=== PATIENT | male | born 1970 | race Caucasian/White ===

== ENCOUNTER → 2017-06-09 | Outpatient (CLI) | payer OTHER ==
--- NOTE | 2017-06-11 15:41 | PE ---
Nuclear medicine PET/CT HISTORY: Lung mass Patient received 13.8 mCi F-18 FDG intravenously in delayed scanning was performed from the skull bas e to the mid thighs. Localization and attenuation correction CT scan was performed. Correlation to chest x-ray 06/04/2017 Neck and chest: There is a soft tissue mass in the left upper lobe with some central lucency, spiculated margins like ly extending to the pleural surface and measuring approximately 16 mm. There is associated hypermetab olic uptake present, SUV 2.7. No pleural effusion. Emphysematous changes are present within the lungs . No endobronchial lesion or pericardial effusion. No mediastinal, axillary, or hilar adenopathy. Abdomen pelvis: There is no evident adrenal mass. Cystic focus is associated with the right kidney. N o retroperitoneal adenopathy or liver mass. No ascites. There is some hypermetabolic uptake noted wit hin the stomach which is indeterminate, SUV 3.9. Osseous structures within normal limits. IMPRESSION: Left upper lobe mass as described with associated hypermetabolic uptake. Indeterminate ga stric uptake, consider endoscopy.
== END | disposition home or self-care (01) ==
LOC: RADPETMAIN 08:10
PROVIDERS: ATTEND Internal Medicine
DX: R91.1 Solitary pulmonary nodule (principal)
CPT/HCPCS: 78815; A9552

== ENCOUNTER 2017-07-02 07:47 | Day surgery (SDC) | payer OTHER ==
[2017-06-27 15:37] VITALS: BMI 17.8
[~2017-07-02 07:47] MED LIST: LACTATED RINGERS 1,000 ML IV SCH; LIDOCAINE 1% 20 ML VIAL (10MG/ML) FOR IV START INTRADERMA PRN
[2017-07-02 08:04] VITALS: RESP 16; TEMP 98
[2017-07-02] MEDS ORDERED: PROPOFOL 10 MG/ML 20 ML VIAL IV ONE (08:55)
[2017-07-02] MEDS ORDERED: LIDOCAINE 1% INJ 10MG/ML (20 ML MDV) ONE (08:55)
[2017-07-02 09:34] VITALS: BP 132/81; PULSE 75
--- NOTE | 2017-07-02 10:27 | P.PCN ---
Date of Procedure: 07/02/17 Procedure(s) Performed: Procedure: Esophagogastroduodenoscopy and biopsy. Preoperative diagnosis: History of lung cancer, dysphagia and abnormal PET scan. Postoperative diagnosis: 1. Small sliding hiatal hernia with no obvious esophagitis or complicated reflux disease. 2. Mild gastritis with no obvious ulcers or tumors. 3. Biopsies obtained from the antrum and esophagus. Preparation sedation: Was provided by anesthesia. Brief clinical history: The patient is a 46-year-old male with history of left lung mass for which he is scheduled for surgery at [facility] later this week. The patient had a PET scan for staging of his cancer last month and there was intermediate uptake in the stomach. Radiology recommended upper endoscopy to rule out gastric pathology. The patient gave history of difficulty swallowing, mostly as a hung up feeling in his throat, but no other alarm symptoms. Procedure: With the patient on his left lateral decubitus position and after informed consent and adequate sedation, I passed the Olympus-GIF 160 video upper endoscope through the cricopharyngeus down the esophagus. GE junction was around 40 cm from the incisors and there was a small sliding hiatal hernia. The esophagus did not show any evidence of esophagitis or complicated reflux disease. The endoscope was then passed into the stomach which was insufflated with air and inspected in detail including the retroflex view of the cardia. There was some mottling and erythema in the antrum but no ulcers or erosions. There were no masses or other abnormalities to correspond to the findings on the PET scan. Pyloric channel, duodenal bulb, post bulbar area and descending duodenum appeared within normal limits. I obtained biopsies from the antrum and esophagus then the endoscope was withdrawn. The patient tolerated the procedure well. Plan: The patient was reassured. Will await biopsy results. Further plans will be made based on his course and biopsy results. I see no reason to change the plans for his lung surgery this week.
== END 2017-07-02 09:56 | disposition home or self-care (01) ==
LOC: ORWHC2ENDO 07:47
DX: K29.50 Unspecified chronic gastritis without bleeding (principal); K44.9 Diaphragmatic hernia without obstruction or gangrene; C34.92 Malignant neoplasm of unspecified part of left bronchus or lung; M54.5 Low back pain; F17.210 Nicotine dependence, cigarettes, uncomplicated
CPT/HCPCS: 88305; 43239; J2001; J2704

== ENCOUNTER → 2017-11-29 | Outpatient (CLI) | payer OTHER ==
--- NOTE | 2017-11-29 11:42 | XR ---
EXAMINATION TYPE: XR chest 2V DATE OF EXAM: 11/29/2017 COMPARISON: Chest x-ray October 17, 2017. PET/CT June 09, 2017 HISTORY: Lung cancer per order. History of partial left-sided pneumonectomy and recent pneumonia per patient. TECHNIQUE: Frontal and lateral views of the chest are obtained. FINDINGS: There is redemonstration of left apical moderate to severe pleural thickening with adjacen t scarring and left-sided volume loss with tracheal shift. There is elevated left hemidiaphragm with left basilar scarring and volume loss redemonstrated. Right lung is hyperexpanded and clear. Cardiac silhouette size is stable and within normal limits. Osseous structures are intact. IMPRESSION: Overall stable findings, posttreatment changes to left lung felt present.. No acute infi ltrate clearly seen. No significant change from most recent chest x-ray.
== END | disposition home or self-care (01) ==
LOC: RADXRMAIN 10:57
PROVIDERS: ATTEND Internal Medicine
DX: C34.90 Malignant neoplasm of unspecified part of unspecified bronchus or lung (principal); Z90.2 Acquired absence of lung [part of]
CPT/HCPCS: 71046

== ENCOUNTER → 2018-05-07 | Outpatient (CLI) | payer OTHER ==
--- NOTE | 2018-05-07 16:04 | CT ---
EXAMINATION TYPE: CT chest w con DATE OF EXAM: 05/07/2018 COMPARISON: PET/CT 06/09/2017 HISTORY: 47-year-old male with solitary pulmonary nodule, history of lung CA TECHNIQUE: Contiguous axial scanning of the chest after the administration of 100 mL of Isovue 300. Coronal/sagittal reconstructions performed. CT DLP: 383mGycm. Automatic exposure control utilized for a dose reduction. FINDINGS: Heart normal size without pericardial effusion. Aorta normal caliber with conventional arch vessel branching anatomy. Small AP window and other mediastinal lymph nodes are demonstrated. No thoracic lymphadenopathy by CT size criteria. There is volume loss in the left hemithorax with pleural parenchymal scarring involving the apex and peripheral left upper lobe with some associated groundglass and bullous change. Left suprahilar and i nfrahilar staple lines are present relating to prior surgery. Additional pleural parenchymal scarring at the peripheral left base with tethering of the left hemidiaphragm. No suspicious mass is identifi ed. There is mild centrilobular emphysema. Calcified granuloma posterior right upper lobe axial image 27. No pleural effusion. No new suspicious pulmonary nodule seen. 1.8 cm cyst lateral right kidney. Small hilar splenule. Bones: No osseous destructive process. Mild to moderate degenerative disc disease mid to lower thorac ic spine. IMPRESSION: 1. Postsurgical changes within the left hemithorax likely corresponding to partial left upper lobecto my. There is architectural distortion with left apical pleural parenchymal scarring as well as periph eral left basilar scarring possibly related to additional post radiation therapy changes. Clinically correlate. 2. Peripherally in the left upper lobe, there is some groundglass density that could represent inters titial scarring, radiation pneumonitis, or a more acute infectious pneumonitis. Again, clinical corre lation recommended. 3. COPD with mild emphysema. New bullous change at the left apex.
== END ==
LOC: RADCTMAIN 11:25
PROVIDERS: ATTEND Internal Medicine
DX: J43.9 Emphysema, unspecified (principal)
CPT/HCPCS: 71260; Q9967

== ENCOUNTER 2018-12-09 21:59 | Emergency (ER) | payer OTHER ==
[2018-12-09] MEDS ORDERED: PROPARACAINE 0.5% OPHTH DROPS 15 ML BTL LEFT EYE STA (23:37)
[2018-12-09] MEDS ORDERED: IPRATROPIUM-ALBUTEROL 3 ML NEB INHALATION STA (23:37)
--- NOTE | 2018-12-09 23:55 | XR ---
EXAMINATION TYPE: XR chest 2V DATE OF EXAM: 12/09/2018 COMPARISON: 09/18/2018 HISTORY: Cough and congestion TECHNIQUE: Frontal and lateral views of the chest are obtained. FINDINGS: Trachea is deviated to the left side. There is pleural thickening and volume loss in the l eft upper lobe. There is mild elevated left diaphragm. Right lung is clear. IMPRESSION: Left-sided volume loss with left upper lobectomy and pleural scarring. No change compare d to last exam. No acute lung disease. Normal heart.
--- NOTE | 2018-12-09 23:57 | ED ---
URI HPI - General Chief Complaint: Upper Respiratory Infection Stated Complaint: Metal in Eye, Pneumonia Time Seen by Provider: 12/09/18 22:34 Source: patient, RN notes reviewed Mode of arrival: ambulatory Limitations: no limitations - History of Present Illness Initial Comments: 48-year-old male presents emergency Department chief complaint cough congestion shortness of breath. Patient states she has a history of COPD and lung cancer with pneumonectomy. Patient states that he's had increasing cough congestion he was on Augmentin 2 weeks ago states that he started improving this course antibiotics after 7 days and states that she started worsening. Patient was seen at [facility] last night though they did not perform any studies including chest x-ray beta treatments and by steroids. Patient also states that he has a form on his left eye which was attempted to be removed at [facility] though this was unsuccessful. He states he does have some ocular pain no blurred vision he states his tetanus is up-to-date. - Related Data Previous Rx's Medication Instructions Recorded Levofloxacin [Levaquin] 500 mg PO DAILY #7 tab 12/10/18 predniSONE 50 mg PO DAILY #5 tab 12/10/18 Allergies Allergy/AdvReac Type Severity Reaction Status Date / Time No Known Allergies Allergy Verified 12/09/18 22:43 Review of Systems ROS Statement: Those systems with pertinent positive or pertinent negative responses have been documented in the HPI. ROS Other: All systems not noted in ROS Statement are negative. Past Medical History Past Medical History: Cancer, Respiratory Disorder Additional Past Medical History / Comment(s): DX WITH LUNG CANCER-TO HAVE UPPER LEFT LOBE REMOVED AT [facility]. 07/06/17 History of Any Multi-Drug Resistant Organisms: None Reported Past Surgical History: Appendectomy Additional Past Surgical History / Comment(s): GLASS REMOVED FROM RT LUNG TEEN Past Anesthesia/Blood Transfusion Reactions: No Reported Reaction Past Psychological History: No Psychological Hx Reported Smoking Status: Former smoker Past Alcohol Use History: None Reported Past Drug Use History: None Reported - Past Family History Mother Family Medical History: No Reported History General Exam Limitations: no limitations General appearance: alert, in no apparent distress Head exam: Present: atraumatic, normocephalic, normal inspection Eye exam: Present: PERRL, EOMI. Absent: normal appearance (Foreign-body left central cornea), scleral icterus, conjunctival injection, periorbital swelling ENT exam: Present: normal exam, normal oropharynx, mucous membranes moist Neck exam: Present: normal inspection, full ROM. Absent: tenderness, meningismus, lymphadenopathy Respiratory exam: Present: wheezes, rhonchi. Absent: normal lung sounds bilaterally, respiratory distress, rales, stridor Cardiovascular Exam: Present: normal rhythm, tachycardia, normal heart sounds. Absent: systolic murmur, diastolic murmur, rubs, gallop, clicks Neurological exam: Present: alert, oriented X3, CN II-XII intact Skin exam: Present: warm, dry, intact, normal color. Absent: rash Course Vital Signs 12/09/18 12/09/18 12/10/18 22:40 23:41 00:04 Temperature 99.1 F Pulse Rate 106 H 88 Respiratory 18 20 Rate Blood Pressure 131/84 O2 Sat by Pulse 99 Oximetry 12/10/18 00:21 Temperature Pulse Rate 80 Respiratory Rate Blood Pressure O2 Sat by Pulse Oximetry Procedures - Procedures Initial comment: Left eye foreign body removal in the central cornea region elbow brush was used there is a mild rust ring which is residual. Medical Decision Making - Medical Decision Making 48-year-old male presented for cough congestion left eye foreign body. Patient had a piece of metal in his left eye which was removed there is small area of rust ring residual illicitly removed by Dr. Kaiser on-call urology. Patient was given Tobrex eye ointment, his tetanus is up-to-date. Patient did have chest x-ray which is unremarkable given 2 breathing treatments which resolved his symptoms. Patient we discharged with antibiotics and steroids continuation of treatments at home. Disposition Clinical Impression: COPD exacerbation, Bronchitis, Foreign body of left eye Disposition: HOME SELF-CARE Condition: Stable Instructions (If sedation given, give patient instructions): Eye Foreign Body (ED) Additional Instructions: Please return to the Emergency Department if symptoms worsen or any other concerns. Prescriptions: Levofloxacin [Levaquin] 500 mg PO DAILY #7 tab predniSONE 50 mg PO DAILY #5 tab Is patient prescribed a controlled substance at d/c from ED?: No Referrals: Zay Travis MD [Primary Care Provider] - 1-2 days Hernando Holman MD [STAFF PHYSICIAN] - 1-2 days Time of Disposition: 00:36
[2018-12-10] MEDS ORDERED: TOBRAMYCIN 0.3% OPHTH OINT 3.5 GM TUBE LEFT EYE STA (00:33)
[2018-12-10] MEDS ORDERED: predniSONE 20 MG TAB PO STA (00:33)
[2018-12-10] MEDS ORDERED: LEVOFLOXACIN 500 MG TAB PO STA (00:33)
[2018-12-10 01:19] VITALS: BP 115/84; PULSE 79; RESP 18; TEMP 99
== END 2018-12-10 01:21 | disposition home or self-care (01) ==
LOC: EC 21:59
DX: J44.1 Chronic obstructive pulmonary disease with (acute) exacerbation (principal); T15.02XA Foreign body in cornea, left eye, initial encounter; Z85.118 Personal history of other malignant neoplasm of bronchus and lung; Z90.2 Acquired absence of lung [part of]; Z87.891 Personal history of nicotine dependence; W45.8XXA Other foreign body or object entering through skin, initial encounter
CPT/HCPCS: 94640; 71046; 99283; 65220; J7512

== ENCOUNTER 2023-09-09 13:24 | Observation (INO) | payer OTHER ==
--- NOTE | 2023-09-09 13:38 | ED ---
General Adult HPI - General Chief complaint: Chest Pain Stated complaint: chest pain Time Seen by Provider: 09/09/23 13:25 Source: patient, EMS Mode of arrival: EMS Limitations: no limitations - History of Present Illness Initial comments: Dictation was produced using [employer] dictation software. please excuse any grammatical, word or spelling errors. Chief Complaint: 52-year-old male with history of lung lobectomy for lung cancer presents to the ER with chest pain History of Present Illness: 52-year-old male presents emergency department with chest pain. Patient was brought in from home by EMS. Approximately 1 hour prior to arrival patient had an episode of chest pressure that radiate down the left upper extremity. Lasted for several minutes. EMS was called patient was given aspirin and morphine. At the bedside patient states his symptoms are resolved. Denies any history of hypertension high cholesterol or diabetes. He does have remote history of tobacco use. Does have family history. States his mother had a heart attack in her 60s. The ROS documented in this emergency department record has been reviewed and confirmed by me. Those systems with pertinent positive or negative responses have been documented in the HPI. All other systems are other negative and/or noncontributory. - Related Data Home Medications Medication Instructions Recorded Confirmed Albuterol Sulfate [Albuterol 1 - 2 puff PO RT-Q6H PRN 09/09/23 09/09/23 Sulfate Hfa] Amoxic-Pot Clav 875-125Mg 1 tab PO BID 09/09/23 09/09/23 [Augmentin 875-125] Atorvastatin [Lipitor] 40 mg PO DAILY 09/09/23 09/09/23 Blood Pressure Medication (Unknown) 1 tab PO DAILY 09/09/23 09/09/23 Fluticasone Propion/Salmeterol 2 puff INHALATION RT-BID 09/09/23 09/09/23 [Advair Hfa 230-21 Mcg Inhaler] Ipratropium-Albuterol Nebulize 3 ml INHALATION RT-QID PRN 09/09/23 09/09/23 [Duoneb 0.5 mg-3 mg/3 ml Soln] Naproxen [Naprosyn] 500 mg PO BID PRN 09/09/23 09/09/23 predniSONE [Deltasone] 20 mg PO BID 09/09/23 09/09/23 Allergies Allergy/AdvReac Type Severity Reaction Status Date / Time No Known Allergies Allergy Verified 09/09/23 13:55 Review of Systems ROS Statement: Those systems with pertinent positive or pertinent negative responses have been documented in the HPI. ROS Other: All systems not noted in ROS Statement are negative. Past Medical History Past Medical History: Cancer, Respiratory Disorder Additional Past Medical History / Comment(s): DX WITH LUNG CANCER-TO HAVE UPPER LEFT LOBE REMOVED AT [facility] 07/06/17 History of Any Multi-Drug Resistant Organisms: None Reported Past Surgical History: Appendectomy Additional Past Surgical History / Comment(s): GLASS REMOVED FROM RT LUNG TEEN Past Anesthesia/Blood Transfusion Reactions: No Reported Reaction Past Psychological History: No Psychological Hx Reported Past Alcohol Use History: None Reported Past Drug Use History: None Reported - Past Family History Mother Family Medical History: No Reported History General Exam - General Exam Comments Initial Comments: PHYSICAL EXAM: General Impression: Alert and oriented x3, not in acute distress HEENT: Normocephalic atraumatic, extra-ocular movements intact, pupils equal and reactive to light bilaterally, mucous membranes moist. Cardiovascular: Heart regular rate and rhythm Chest: Able to complete full sentences, no retractions, no tachypnea Abdomen: abdomen soft, non-tender, non-distended, no organomegaly Musculoskeletal: Pulses present and equal in all extremities, no peripheral edema Motor: no focal deficits noted Neurological: CN II-XII grossly intact, no focal motor or sensory deficits noted Skin: Intact with no visualized rashes Psych: Normal affect and mood Limitations: no limitations Course Vital Signs 09/09/23 13:31 Temperature 97.5 F L Pulse Rate 67 Respiratory 16 Rate Blood Pressure 159/101 O2 Sat by Pulse 100 Oximetry EKG Findings - EKG Comments: EKG Findings:: My EKG interpretation: Ventricular rate 60, sinus rhythm,. 135, QRS 91, QTc 397. No HI prolongation, no QTC prolongation, no ST or T-wave change s noted. Old EKG for comparison. T wave inversions in V1, V2 and aVL. Overall this EKG is nonspecific Medical Decision Making - Medical Decision Making Was pt. sent in by a medical professional or institution (, PA, KITCHEN AND BATH DESIGNER, urgent care, hospital, or retirement...) When possible be specific @ -No Did you speak to anyone other than the patient for history (EMS, parent, family, police, friend...)? What history was obtained from this source @ -No Did you review nursing and triage notes (agree or disagree)? Why? @ -I reviewed and agree with nursing and triage notes Were old charts reviewed (outside hosp., previous admission, EMS record, old EKG, old radiological studies, urgent care reports/EKG's, retirement records)? Report findings @ -No old charts were reviewed Differential Diagnosis (chest pain, altered mental status, abdominal pain women, abdominal pain men, vaginal bleeding, musculoskeletal, weakness, fever, dyspnea, syncope, headache, dizziness, GI bleed, back pain, seizure, CVA, palpatations, mental health)? @ -Differential Chest Pain: Stable Angina, Unstable Angina, STEMI, NSTEMI Aortic Dissection, Pneumothorax, Musculoskeletal, Esophageal Spasm GERD, Cholecystitis, Pancreatitis, Zoster, this is not meant to be an all-inclusive list. EKG interpreted by me (3pts min.). @ -As chris X-rays interpreted by me (1pt min.). @ -None done CT interpreted by me (1pt min.). @ -None done U/S interpreted by me (1pt. min.). @ -None done What testing was considered but not performed or refused? (CT, X-rays, U/S, labs)? Why? @ -None What meds were considered but not given or refused? Why? @ -None Was smoking cessation discussed for >3mins.? @ -No Were there social determinants of health that impacted care today? How? (Homelessness, low income, unemployed, alcoholism, drug addiction, transportation, low edu. Level, literacy, decrease access to med. care, [facility], rehab)? @ -No Was there de-escalation of care discussed even if they declined (Discuss DNR or withdrawal of care, Hospice)? DNR status @ -No What co-morbidities impacted this encounter? (DM, HTN, Smoking, COPD, CAD, Cancer, CVA, ARF, Chemo, Hep., AIDS, mental health diagnosis, sleep apnea, morbid obesity)? @ -History of tobacco use Was patient admitted / discharged? Hospital course, mention meds given and route, prescriptions, significant lab abnormalities, going to OR and other pertinent info. @ -52-year-old male with multiple risk factors presents to the ER for chest pain consistent with acute coronary syndrome. Vital signs are stable. Patient pain-free at the bedside. His pain was relieved with aspirin and nitro and morphine by prehospital providers. Laboratory evaluation obtained. CBC, coag panel metabolic panel is unremarkable. Initial troponin is negative. Serial EKGs are u without any dynamic changes. Received aspirin by prehospital providers. Patient reevaluated bedside 3:00 PM still pain-free at this time. Patient be admitted consultation cardiology. Did you discuss the management of the patient with other professionals (professionals i.e. , PA, KITCHEN AND BATH DESIGNER, lab, RT, psych nurse, social media manager, supervisor fish hatchery, teacher, light armored reconnaissance officer, casework manager)? Give summary @ -Discussed with Dr. Schmitz for admission Was critical care preformed (if so, how long)? @ -No Undiagnosed new problem with uncertain prognosis? @ -No Drug Therapy requiring intensive monitoring for toxicity (Heparin, Nitro, Insulin, Cardizem)? @ -No Were any procedures done? @ -No Diagnosis/symptom? Acute, or Chronic, or Acute on Chronic? Uncomplicated (without systemic symptoms) or Complicated (systemic symptoms)? @ -Acute coronary syndrome Side effects of treatment? @ -No Exacerbation, Progression, or Severe Exacerbation? @ -No Poses a threat to life or bodily function? How? (Chest pain, USA, LA, pneumonia, PE, COPD, DKA, ARF, appy, cholecystitis, CVA, Diverticulitis, Homicidal, Suicidal, threat to staff... and all critical care pts) @ -yes - Lab Data Result diagrams: 09/09/23 13:43 09/09/23 13:43 Lab Results 09/09/23 09/09/23 09/09/23 Range/Units 13:43 13:43 13:43 WBC 8.3 (3.8-10.6) k/uL RBC 4.62 (4.30-5.90) m/uL Hgb 14.3 (13.0-17.5) gm/dL Hct 44.2 (39.0-53.0) % MCV 95.7 (80.0-100.0) fL MCH 31.0 (25.0-35.0) pg MCHC 32.4 (31.0-37.0) g/dL RDW 12.4 (11.5-15.5) % Plt Count 276 (150-450) k/uL MPV 7.5 Neutrophils % 71 % Lymphocytes % 21 % Monocytes % 4 % Eosinophils % 2 % Basophils % 1 % Neutrophils # 5.9 (1.3-7.7) k/uL Lymphocytes # 1.7 (1.0-4.8) k/uL Monocytes # 0.4 (0-1.0) k/uL Eosinophils # 0.2 (0-0.7) k/uL Basophils # 0.1 (0-0.2) k/uL PT 10.6 (10.0-12.5) sec INR 1.0 (<1.2) APTT 24.6 (22.0-30.0) sec Sodium 140 (137-145) mmol/L Potassium 4.4 (3.5-5.1) mmol/L Chloride 106 (98-107) mmol/L Carbon Dioxide 27 (22-30) mmol/L Anion Gap 7 mmol/L BUN 8 L (9-20) mg/dL Creatinine 0.84 (0.66-1.25) mg/dL Est GFR (CKD-EPI)AfAm >90 (>60 ml/min/1.73 sqM) Est GFR (CKD-EPI)NonAf >90 (>60 ml/min/1.73 sqM) Glucose 100 H (74-99) mg/dL Calcium 9.7 (8.4-10.2) mg/dL Magnesium 2.0 (1.6-2.3) mg/dL Total Bilirubin 0.9 (0.2-1.3) mg/dL AST 18 (17-59) U/L ALT 9 (4-49) U/L Alkaline Phosphatase 89 (38-126) U/L Troponin I (0.000-0.034) ng/mL Total Protein 6.6 (6.3-8.2) g/dL Albumin 4.4 (3.5-5.0) g/dL 09/09/23 Range/Units 13:43 WBC (3.8-10.6) k/uL RBC (4.30-5.90) m/uL Hgb (13.0-17.5) gm/dL Hct (39.0-53.0) % MCV (80.0-100.0) fL MCH (25.0-35.0) pg MCHC (31.0-37.0) g/dL RDW (11.5-15.5) % Plt Count (150-450) k/uL MPV Neutrophils % % Lymphocytes % % Monocytes % % Eosinophils % % Basophils % % Neutrophils # (1.3-7.7) k/uL Lymphocytes # (1.0-4.8) k/uL Monocytes # (0-1.0) k/uL Eosinophils # (0-0.7) k/uL Basophils # (0-0.2) k/uL PT (10.0-12.5) sec INR (<1.2) APTT (22.0-30.0) sec Sodium (137-145) mmol/L Potassium (3.5-5.1) mmol/L Chloride (98-107) mmol/L Carbon Dioxide (22-30) mmol/L Anion Gap mmol/L BUN (9-20) mg/dL Creatinine (0.66-1.25) mg/dL Est GFR (CKD-EPI)AfAm (>60 ml/min/1.73 sqM) Est GFR (CKD-EPI)NonAf (>60 ml/min/1.73 sqM) Glucose (74-99) mg/dL Calcium (8.4-10.2) mg/dL Magnesium (1.6-2.3) mg/dL Total Bilirubin (0.2-1.3) mg/dL AST (17-59) U/L ALT (4-49) U/L Alkaline Phosphatase (38-126) U/L Troponin I <0.012 (0.000-0.034) ng/mL Total Protein (6.3-8.2) g/dL Albumin (3.5-5.0) g/dL Disposition Clinical Impression: Chest pain Disposition: ADMITTED IP TO THIS [facility] Condition: Fair Referrals: Zay Travis MD [REFERRING] - 1-2 days Decision Time: 15:05
--- NOTE | 2023-09-09 13:56 | XR ---
EXAMINATION TYPE: XR chest 2V DATE OF EXAM: 09/09/2023 COMPARISON: 12/09/2018 INDICATION: Chest pain TECHNIQUE: Frontal and lateral views of the chest are obtained. FINDINGS: The heart size is normal. The pulmonary vasculature is normal. There is a posterior left base opacity which may be scarring. This was present previously and appears stable. Left apical opacification likewise appears stable. There is shift of the mediastinum to the left. IMPRESSION: 1. Chronic opacities on the left base and left apex. 2. No acute pulmonary process radiographically..
[2023-09-09 14:03] LABS: Basophils # (A) 0.1 k/uL (0-0.2); Basophils % (A) 1 %; Eosinophils # (A) 0.2 k/uL (0-0.7); Eosinophils % (A) 2 %; HCT 44.2 % (39.0-53.0); HGB 14.3 gm/dL (13.0-17.5); Lymphocytes # (A) 1.7 k/uL (1.0-4.8); Lymphocytes % (A) 21 %; MCHC 32.4 g/dL (31.0-37.0); MCV 95.7 fL (80.0-100.0); Mean Platelet Volume 7.5; Monocytes # (A) 0.4 k/uL (0-1.0); Monocytes % (A) 4 %; Neutrophils # (A) 5.9 k/uL (1.3-7.7); Neutrophils % (A) 71 %; Platelet Count 276 k/uL (150-450); RBC 4.62 m/uL (4.30-5.90); RDW 12.4 % (11.5-15.5); WBC 8.3 k/uL (3.8-10.6)
[2023-09-09 14:11] LABS: Partial Thromboplastin Time 24.6 sec (22.0-30.0); Prothrombin Time 10.6 sec (10.0-12.5)
[2023-09-09 14:14] LABS: ALT 9 U/L (4-49); AST 18 U/L (17-59); African American GFR (CKD) >90 (>60 ml/min/1.73 sqM); Albumin 4.4 g/dL (3.5-5.0); Alkaline Phosphatase 89 U/L (38-126); Anion Gap 7 mmol/L; Blood Urea Nitrogen 8 mg/dL (9-20); Calcium 9.7 mg/dL (8.4-10.2); Carbon Dioxide 27 mmol/L (22-30); Chloride 106 mmol/L (98-107); Glucose 100 mg/dL (74-99); Non-African American GFR(CKD) >90 (>60 ml/min/1.73 sqM); Potassium 4.4 mmol/L (3.5-5.1); Sodium 140 mmol/L (137-145); Total Bilirubin 0.9 mg/dL (0.2-1.3); Total Protein 6.6 g/dL (6.3-8.2)
[2023-09-09] MEDS ORDERED: NITROGLYCERIN SL TABS 0.4 MG TAB SUBLINGUAL PRN (15:03)
[2023-09-09] MEDS ORDERED: NAPROXEN 250 MG TAB PO PRN (18:47)
[2023-09-09] MEDS ORDERED: IPRATROPIUM-ALBUTEROL 3 ML NEB INHALATION PRN (18:47)
[2023-09-09] MEDS: SYMBICORT 160-4.5 MCG INHALER INHALATION SCH (19:38)
[2023-09-09] MEDS: predniSONE 20 MG TAB PO SCH (20:27)
[2023-09-10 08:48] LABS: Chol/HDL Ratio 4.33 Ratio; LDL Cholesterol,Calculated 83.8 mg/dL (0.0-131.0)
[2023-09-10] MEDS: ATORVASTATIN 40 MG TAB PO SCH (09:05)
[2023-09-10] MEDS: ASPIRIN 325 MG TAB PO SCH (09:05)
--- NOTE | 2023-09-10 10:36 | P.CRDCN ---
History of Present Illness Consult date: 09/10/23 Consult reason: chest pain History of present illness: This is a 52-year-old male with no previous cardiac history. 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 He has a past medical history of hyperlipidemia, hypertension, lung cancer in 2018 status postresection, COPD, remote history of tobacco use. Patient states that he was watching TV and he developed chest pain that was a tightness in the left upper chest and went down his left arm. He also developed cold sweats and palpitations. He states chest pain is gone now. He received nitroglycerin while he was with EMS and also morphine as he states his blood pressure was 200 systolic. He denies history of diabetes. Patient is seen today in the emergency center waiting for a bed on the cardiac stepdown unit. EKG: Sinus rhythm no acute ST-T wave changes. Chest x-ray: Chronic opacities of the left base and left apex. No acute pulmonary process. Laboratory studies: BUN 8 creatinine 0.84, potassium 4.4, hemoglobin 14.3. Troponin negative x 3. Triglycerides 173, cholesterol 154, LDL 83. Home cardiac medications: Atorvastatin 40 mg daily, Cardizem CD 120 mg daily, losartan 50 mg daily. Review Of Systems: At the time of my exam: CONSTITUTIONAL: Denies fever or chills. HEENT: Denies blurred vision, vision changes, or eye pain. Denies hemoptysis CARDIOVASCULAR: Denies chest pain. Denies orthopnea. Denies PND. Denies palpitations RESPIRATORY: Denies shortness of breath. GASTROINTESTINAL: Denies abdominal pain. Denies nausea or vomiting. HEMATOLOGIC: Denies bleeding disorders. GENITOURINARY: Denies any blood in urine. SKIN: Denies puritis. Denies rash. Physical examination: Gen: This is a 52-year-old male in no acute distress VS: reviewed HEENT: Head is atraumatic, normocephalic. Pupils equal, round. Sclerae is anicteric. NECK: Supple. No JVD. LUNGS: Clear to auscultation. No wheezes or rhonchi. No intercostal retractions. HEART: Regular rate and rhythm. No murmur. ABDOMEN: Soft No tenderness. EXTREMITIES: No pedal edema. No calf tenderness. NEUROLOGICAL: Patient is awake, alert and oriented x3. Assessment: Atypical chest pain, acute coronary syndrome ruled out with negative troponins Hypertension Hyperlipidemia Lung cancer status post resection 2018 COPD Remote history of tobacco use and dependence Plan: Resume patient's home cardiac medications Pain stress echocardiogram today Obtain 2-D echocardiogram and Doppler study to assess cardiac structure and function Switch aspirin to 81 mg daily If testing is unremarkable, patient is cleared for discharge home. Thank you kindly for this consultation. Nurse practitioner note has been reviewed, I agree with documented findings and plan of care. Patient was seen and examined. Past Medical History Past Medical History: Cancer, Respiratory Disorder Additional Past Medical History / Comment(s): DX WITH LUNG CANCER-TO HAVE UPPER LEFT LOBE REMOVED AT [facility]. 07/06/17 History of Any Multi-Drug Resistant Organisms: None Reported Past Surgical History: Appendectomy Additional Past Surgical History / Comment(s): GLASS REMOVED FROM RT LUNG TE EN Past Anesthesia/Blood Transfusion Reactions: No Reported Reaction Past Psychological History: No Psychological Hx Reported Past Alcohol Use History: None Reported Past Drug Use History: None Reported - Past Family History Mother Family Medical History: No Reported History Medications and Allergies Home Medications Medication Instructions Recorded Confirmed Type Albuterol Sulfate [Albuterol 1 - 2 puff PO RT-Q6H PRN 09/09/23 09/09/23 History Sulfate Hfa] Amoxic-Pot Clav 875-125Mg 1 tab PO BID 09/09/23 09/09/23 History [Augmentin 875-125] Atorvastatin [Lipitor] 40 mg PO DAILY 09/09/23 09/09/23 History Fluticasone Propion/Salmeterol 2 puff INHALATION RT-BID 09/09/23 09/09/23 History [Advair Hfa 230-21 Mcg Inhaler] Ipratropium-Albuterol Nebulize 3 ml INHALATION RT-QID PRN 09/09/23 09/09/23 History [Duoneb 0.5 mg-3 mg/3 ml Soln] Naproxen [Naprosyn] 500 mg PO BID PRN 09/09/23 09/09/23 History predniSONE [Deltasone] 20 mg PO BID 09/09/23 09/09/23 History Losartan [Cozaar] 50 mg PO DAILY 09/10/23 09/10/23 History dilTIAZem HCL [dilTIAZem HCL 24Hr 120 mg PO DAILY 09/10/23 09/10/23 History ER (CD)] Allergies Allergy/AdvReac Type Severity Reaction Status Date / Time No Known Allergies Allergy Verified 09/10/23 09:55 Physical Exam Vitals: Vital Signs Temp Pulse Resp BP Pulse Ox 09/10/23 07:27 51 L 16 125/81 98 09/10/23 04:53 62 125/81 100 09/09/23 23:28 58 L 16 145/87 100 09/09/23 19:28 52 L 16 140/89 100 09/09/23 18:59 98.6 F 61 16 129/92 99 09/09/23 17:21 61 16 144/99 99 09/09/23 16:00 64 16 134/107 100 09/09/23 15:20 70 16 170/108 98 09/09/23 13:31 97.5 F L 67 16 159/101 100 Results 09/09/23 13:43 09/09/23 13:43 Cardiac Enzymes 09/09/23 09/09/23 09/09/23 Range/Units 13:43 13:43 16:06 AST 18 (17-59) U/L Troponin I <0.012 <0.012 (0.000-0.034) ng/mL 09/09/23 Range/Units 19:08 AST (17-59) U/L Troponin I <0.012 (0.000-0.034) ng/mL Coagulation 09/09/23 Range/Units 13:43 PT 10.6 (10.0-12.5) sec APTT 24.6 (22.0-30.0) sec CBC 09/09/23 Range/Units 13:43 WBC 8.3 (3.8-10.6) k/uL RBC 4.62 (4.30-5.90) m/uL Hgb 14.3 (13.0-17.5) gm/dL Hct 44.2 (39.0-53.0) % Plt Count 276 (150-450) k/uL Comprehensive Metabolic Panel 09/09/23 Range/Units 13:43 Sodium 140 (137-145) mmol/L Potassium 4.4 (3.5-5.1) mmol/L Chloride 106 (98-107) mmol/L Carbon Dioxide 27 (22-30) mmol/L BUN 8 L (9-20) mg/dL Creatinine 0.84 (0.66-1.25) mg/dL Glucose 100 H (74-99) mg/dL Calcium 9.7 (8.4-10.2) mg/dL AST 18 (17-59) U/L ALT 9 (4-49) U/L Alkaline Phosphatase 89 (38-126) U/L Total Protein 6.6 (6.3-8.2) g/dL Albumin 4.4 (3.5-5.0) g/dL Current Medications Generic Name Dose Route Start Last Admin Trade Name Freq PRN Reason Stop Dose Admin Albuterol/Ipratropium 3 ml 09/09/23 18:47 Ipratropium-Albuterol 3 Ml Neb INHALATION RT-QID PRN Shortness Of Breath Aspirin 325 mg 09/10/23 09:00 Aspirin 325 Mg Tab PO DAILY EBONY Atorvastatin Calcium 40 mg 09/10/23 09:00 Atorvastatin 40 Mg Tab PO DAILY EBONY Budesonide/Formoterol Fumarate 2 puff 09/09/23 20:00 09/09/23 19:38 Symbicort 160-4.5 Mcg Inhaler INHALATION 2 puff RT-BID EBONY Administration Naproxen 500 mg 09/09/23 18:47 Naproxen 250 Mg Tab PO BID PRN Pain Nitroglycerin 0.4 mg 09/09/23 15:03 Nitroglycerin Sl Tabs 0.4 Mg Tab SUBLINGUAL Q5M PRN Chest Pain Prednisone 20 mg 09/09/23 21:00 09/09/23 20:27 Prednisone 20 Mg Tab PO 20 mg BID EBONY Administration 09/09/23 13:43 09/09/23 13:43
[2023-09-10 12:43] VITALS: RESP 18
[2023-09-10] MEDS: LOSARTAN 50 MG TAB PO SCH (12:48)
[2023-09-10] MEDS: DILTIAZEM CD 120 MG CAP.ER.24H PO SCH (12:48)
--- NOTE | 2023-09-10 13:47 | CA ---
Stress Echo Report Markus Manuel Age: 52 Gender: M : 1970 Exam Date: 09/10/2023 11:54 Exam Location: [facility] Ht (in): 71 Wt (lb): 114 Ordering Physician: Ebonie Hercules Referring Physician: [id number] Speech And Language Tutor: Ulices Cruz Technologist Procedure CPT: Indication: Chest Pain ICD-9 Codes: Rhythm: Patient History: Cardiac Medications: SEE CAHRT Medications in past 24 hours: Contrast: N/A Stress Results Protocol: Jose Total dose(mL): NA Exercise Duration (min:sec): 10:[address] Depression (mm): Angina Score: Alegre Score: METS: 11.9 Resting HR: 76 Resting BP: 137 / 85 Peak HR: 145 Peak BP: 174 / 85 Max Predicted HR: 169 86 % Max Predicted HR Target HR: 144 Double Product: [id number] Stress Summary: BP Response: Reason for Termination: MAX EXERTION/TARGET HR Cardiac Symptoms: Shortness of breath at peak stress level ECG Analysis Resting ECG: Normal sinus rhythm Stress ECG: No significant ST or T wave changes that are diagnostic for ischemia by ST segment analysis Arrhythmia: Patient had occasional PVCs during the end of recovery phase. Echo Analysis Resting Echo: Normal global and segmental systolic function. No obvious regional wall motion abnormality, septal shudder noted suggestive of RV pressure overload Peak Echo Analysis: Stress images were obtained at a peak heart rate of 125 bpm which is 75% of the age-predicted maximum heart rate Patient's stress echo images are nondiagnostic. At 75% maximal heart rate, no stress-induced regional wall motion abnormality appreciated. Normal augmentation of global and segmental systolic function with MEASUREMENTS (Male/Female) Normal Values CONCLUSIONS Overall low probability for obstructive CAD however nondiagnostic as echo images were acquired late at 75% of max heart rate. Nonischemic ECG response to treadmill exercise Nonischemic echocardiographic response at 75% of maximum heart rate Good exercise tolerance for age achieving 11.9 METS Normal hemodynamic response to treadmill exercise. Dr Gera Denton (Electronically Signed) Final Date: 10 September 2023 13:46
[2023-09-10] MEDS: ENOXAPARIN 40 MG/0.4 ML SYRINGE SQ SCH (13:48)
--- NOTE | 2023-09-10 13:53 | CA ---
Transthoracic Echo Report Name: Markus Manuel Age: 52 Gender: M : 1970 Exam Date: 09/10/2023 12:13 Exam Location: [facility] Ht (in): 71 Wt (lb): 114 Ordering Physician: Ebonie Hercules Attending/Referring Phys: [id number], Diomedes Paper Box Maker Jasmin Chavez RDCS Procedure CPT: Indications: LVF Cardiac Hx: Technical Quality: Good Contrast 1: Total Dose (mL): Contrast 2: Total Dose (mL): MEASUREMENTS (Male / Female) Normal Values 2D ECHO LV Diastolic Diameter PLAX 3.7 cm 4.2 - 5.9 / 3.9 - 5.3 cm LV Systolic Diameter PLAX 2.9 cm IVS Diastolic Thickness 0.7 cm 0.6 - 1.0 / 0.6 - 0.9 cm LVPW Diastolic Thickness 1.0 cm 0.6 - 1.0 / 0.6 - 0.9 cm LV Relative Wall Thickness 0.5 RV Internal Dim ED PLAX 2.4 cm LA Systolic Diameter LX 2.3 cm 3.0 - 4.0 / 2.7 - 3.8 cm LV Diastolic Volume MOD 4C 92.3 cm??? LV Systolic Volume MOD 4C 39.2 cm??? LV Ejection Fraction MOD 4C 57.5 % LV Cardiac Index MOD 4C 1773.3 cm???/min???m??? LV Diastolic Length 4C 8.9 cm LV Systolic Length 4C 7.1 cm LV Diastolic Volume MOD 2C 106.9 cm??? LV Systolic Volume MOD 2C 47.3 cm??? LV Ejection Fraction MOD 2C 55.7 % LV Cardiac Index MOD 2C 1989.9 cm???/min???m??? LV Diastolic Length 2C 9.1 cm LV Systolic Length 2C 7.7 cm LA Volume 38.9 cm??? 18 - 58 / 22 - 52 cm??? LA Volume Index 24.5 cm???/m??? 16 - 28 cm???/m??? M-MODE Aortic Root Diameter MM 3.1 cm AV Cusp Separation MM 1.9 cm DOPPLER AV Peak Velocity 134.4 cm/s AV Peak Gradient 7.2 mmHg MV Area PHT 3.7 cm??? Mitral E Point Velocity 73.4 cm/s Mitral A Point Velocity 48.1 cm/s Mitral E to A Ratio 1.5 MV Deceleration Time 205.0 ms TR Peak Velocity 241.5 cm/s TR Peak Gradient 23.3 mmHg Right Ventricular Systolic Press 28.3 mmHg FINDINGS Left Ventricle Left ventricular ejection fraction is estimated at 55-60 %. Small left ventricular cavity. Left ventricular wall thickness normal. Normal left ventricular wall motion. Indeterminate diastolic function. Right Ventricle Mildly dilated RV with preserved systolic function. Mild septal shudder noticed, suggestive of RV pressure overload. However RVSP is estimated at around 33 mmHg Right Atrium Normal right atrial size. No right atrial thrombus or mass seen. Left Atrium Normal left atrial size. No left atrial thrombus or mass present. Mitral Valve Structurally normal mitral valve. No mitral stenosis, regurgitation or prolapse. Aortic Valve Trileaflet aortic valve. No aortic valve stenosis or regurgitation. Tricuspid Valve Structurally normal tricuspid valve. Trace to mild tricuspid regurgitation. Pulmonic Valve Structurally normal pulmonic valve. No pulmonic regurgitation. Pericardium No pericardial effusion. Aorta Normal size aortic root and proximal ascending aorta. CONCLUSIONS Left ventricular ejection fraction is estimated at 55-60 %. No obvious resting regional wall motion abnormality No significant valvular dysfunction Mildly dilated RV with preserved systolic function. Signs of RV pressure overload with septal shudder. However RVSP estimated around 33 mmHg Dilated IVC but collapsible Previewed by: Dr Gera Denton (Electronically Signed) Final Date: 10 September 2023 13:52
[2023-09-10 14:42] VITALS: BP 184/87; PULSE 77; TEMP 97.8
--- NOTE | 2023-09-10 15:23 | P.HPIM ---
History of Present Illness H&P Date: 09/10/23 Chief Complaint: Left chest pain This is a pleasant 52-year-old patient with chronic stable medical conditions that include COPD, hypertension, hyperlipidemia, chronic back pain/herniated disc without 6 years ago had left upper lobe lobectomy for lung cancer. Yest erday afternoon patient developed left anterior chest wall pain. Also noticed some increased heart rate. Pain went down the left arm. Also was dizzy lightheaded some perspiration. When patient received nitroglycerin and morphine patient chest pain improved. Significantly Patient is accompanied by his daughter and at the bedside in the ER. No prior cardiac history. Patient being treated for Augmentin and steroids for his COPD flareup as outpatient Review of systems: GEN.: A bit tired EYES: None HEENT: None NECK: None RESPIRATORY: Baseline some shortness of breath e CARDIOVASCULAR: As above GASTROINTESTINAL: None GENITOURINARY: None MUSCULOSKELETAL: Chronic back pain LYMPHATICS: None HEMATOLOGICAL: None PSYCHIATRY: None NEUROLOGICAL: None Social Security: Patient is on Social Security disability. Lives with his and daughter. Smoked about a pack and a half for about 30 years stopped about 6 years ago. No alcohol. Physical examination: VITAL SIGNS: 97.5, 67, 16, 159/101, 100% room air on presentation GENERAL: BMI 15.9, sitting bed awake tired EYES: Pupils equal. Conjunctiva arun l. HEENT: External appearance of nose and ears normal, oral cavity grossly normal. NECK: JVD not raised; masses not palpable. HEART: First and second heart sounds are normal; no edema. LUNGS: Respiratory rate increased, decreased breath sound. ABDOMEN: Soft, nontender, liver spleen not palpable, no masses palpable. PSYCH: Alert and oriented x3; mood and affect arun l. MUSCULOSKELETAL:No Clubbing/cyanosis;muscles-grossly intact. Decreased muscle mass loss of subcutaneous fat NEUROLOGICAL: Cranial nerves grossly intact; no facial asymmetry, power and sensation grossly intact. LYMPHATICS: No lymph nodes palpable in the axilla and neck INVESTIGATIONS, reviewed in the clinical context: September 08: White count 8.3 hemoglobin 14.3 platelets 276 sodium 140 potassium 4.4 creatinine 0.84 Troponin I less than 0.012 x 3 LDL 83.8 EKG tracing personally reviewed by me-normal sinus rhythm Chest x-ray film personally reviewed by me-hyperinflation. Upper part of trach ea Caryn slightly to the left Assessment plan: -Anterior left-sided chest pain. Cardiac risk factors including prior smoker Troponins negative. Telemetry. Cardiology consulted. 2D echo and stress echo ordered. -COPD and a prior smoker DuoNeb. Advair. Prednisone. -Chronic back pain/herniated disc Naproxen as needed -Hyperlipidemia Lipitor 40 mg a day -Essential hypertension Cardizem CD 120 mg daily, Cozaar 50 mg a day -Protein calorie malnutrition, moderate Boost 1 can 3 times daily. Follow-up with dietitian outpatient Care was discussed with the patient at the bedside. Past Medical History Past Medical History: Cancer, Respiratory Disorder Additional Past Medical History / Comment(s): DX WITH LUNG CANCER-TO HAVE UPPER LEFT LOBE REMOVED AT [facility]. 07/06/17 History of Any Multi-Drug Resistant Organisms: None Reported Past Surgical History: Appendectomy Additional Past Surgical History / Comment(s): GLASS REMOVED FROM RT LUNG TEEN Past Anesthesia/Blood Transfusion Reactions: No Reported Reaction Past Psychological History: No Psychological Hx Reported Past Alcohol Use History: None Reported Past Drug Use History: None Reported - Past Family History Mother Family Medical History: No Reported History Medications and Allergies Home Medications Medication Instructions Recorded Confirmed Type Albuterol Sulfate [Albuterol 1 - 2 puff PO RT-Q6H PRN 09/09/23 09/09/23 History Sulfate Hfa] Amoxic-Pot Clav 875-125Mg 1 tab PO BID 09/09/23 09/09/23 History [Augmentin 875-125] Atorvastatin [Lipitor] 40 mg PO DAILY 09/09/23 09/09/23 History Fluticasone Propion/Salmeterol 2 puff INHALATION RT-BID 09/09/23 09/09/23 History [Advair Hfa 230-21 Mcg Inhaler] Ipratropium-Albuterol Nebulize 3 ml INHALATION RT-QID PRN 09/09/23 09/09/23 History [Duoneb 0.5 mg-3 mg/3 ml Soln] Naproxen [Naprosyn] 500 mg PO BID PRN 09/09/23 09/09/23 History predniSONE [Deltasone] 20 mg PO BID 09/09/23 09/09/23 History Aspirin 81 mg PO DAILY tab 09/10/23 Rx Losartan [Cozaar] 50 mg PO DAILY 09/10/23 09/10/23 History dilTIAZem HCL [dilTIAZem HCL 24Hr 120 mg PO DAILY 09/10/23 09/10/23 History ER (CD)] Allergies Allergy/AdvReac Type Severity Reaction Status Date / Time No Known Allergies Allergy Verified 09/10/23 09:55 Physical Exam Vitals: Vital Signs Temp Pulse Resp BP Pulse Ox 09/10/23 07:27 51 L 16 125/81 98 09/10/23 04:53 62 125/81 100 09/09/23 23:28 58 L 16 145/87 100 09/09/23 19:28 52 L 16 140/89 100 09/09/23 18:59 98.6 F 61 16 129/92 99 09/09/23 17:21 61 16 144/99 99 09/09/23 16:00 64 16 134/107 100 09/09/23 15:20 70 16 170/108 98 09/09/23 13:31 97.5 F L 67 16 159/101 100 Results CBC & Chem 7: 09/09/23 13:43 09/09/23 13:43 Labs: Abnormal Lab Results - Last 24 Hours (Table) 09/09/23 09/09/23 Range/Units 13:43 13:43 BUN 8 L (9-20) mg/dL Glucose 100 H (74-99) mg/dL Triglycerides 173.00 H (0.00-149.00) mg/dL HDL Cholesterol 35.60 L (40.00-60.00) mg/dL
--- NOTE | 2023-09-10 15:34 | P.DS ---
Providers Date of admission: 09/09/23 15:04 Expected date of discharge: 09/10/23 Attending physician: Geoff Schmitz Consults: 09/09/23 15:03 Consult Physician Urgent Consulting Provider: Gear Denton Consult Reason/Comments: chest pain Do you want consulting provider notified?: Yes Primary care physician: Luisa Ramos MD Hospital Course: Chief Complaint: Left chest pain This is a pleasant 52-year-old patient with chronic stable medical conditions that include COPD, hypertension, hyperlipidemia, chronic back pain/herniated disc without 6 years ago had left upper lobe lobectomy for lung cancer. Yesterday afternoon patient developed left anterior chest wall pain. Also noticed some increased heart rate. Pain went down the left arm. Also was dizzy lightheaded some perspiration. When patient received nitroglycerin and morphine patient chest pain improved. Significantly Patient is accompanied by his daughter and at the bedside in the ER. No prior cardiac history. Patient being treated for Augmentin and steroids for his COPD flareup as outpatient. No change in shortness of breath from baseline D echo stress echocardiogram negative patient is cleared by cardiology for discharge Social Security: Patient is on Social Security disability. Lives with his and daughter. Smoked about a pack and a half for about 30 years stopped about 6 years ago. No alcohol. Physical examination: VITAL SIGNS: 97.5, 67, 16, 159/101, 100% room air on presentation GENERAL: BMI 15.9, sitting bed awake tired EYES: Pupils equal. Conjunctiva arun l. HEENT: External appearance of nose and ears normal, oral cavity grossly normal. NECK: JVD not raised; masses not palpable. HEART: First and second heart sounds are normal; no edema. LUNGS: Respiratory rate increased, decreased breath sound. ABDOMEN: Soft, nontender, liver spleen not palpable, no masses palpable. PSYCH: Alert and oriented x3; mood and affect arun l. MUSCULOSKELETAL:No Clubbing/cyanosis;muscles-grossly intact. Decreased muscle mass loss of subcutaneous fat NEUROLOGICAL: Cranial nerves grossly intact; no facial asymmetry, power and se nsation grossly intact. LYMPHATICS: No lymph nodes palpable in the axilla and neck INVESTIGATIONS, reviewed in the clinical context: Stress echocardiogram, negative for ischemia 2D echocardiogram: EF 55 to 60%. September 08: White count 8.3 hemoglobin 14.3 platelets 276 sodium 140 potassium 4.4 creatinine 0.84 Troponin I less than 0.012 x 3 LDL 83.8 EKG tracing personally reviewed by me-normal sinus rhythm Chest x-ray film personally reviewed by me-hyperinflation. Upper part of trachea Caryn slightly to the left Assessment plan: -Anterior left-sided chest pain. Cardiac risk factors including prior smoker: Could be musculoskeletal Seen by Dr. Nat Denton from cardiology 2D echo and stress echocardiogram negative. Cleared for discharge -COPD and a prior smoker DuoNeb. Advair. Prednisone. -Chronic back pain/herniated disc Naproxen as needed -Hyperlipidemia Lipitor 40 mg a day -Essential hypertension Cardizem CD 120 mg daily, Cozaar 50 mg a day -Protein calorie malnutrition, moderate Boost 1 can 3 times daily. Follow-up with dietitian outpatient Disposition: Home Past Medical History Past Medical History: Cancer, Respiratory Disorder Additional Past Medical History / Comment(s): DX WITH LUNG CANCER-TO HAVE UPPER LEFT LOBE REMOVED AT [facility]. 07/06/17 History of Any Multi-Drug Resistant Organisms: None Reported Past Surgical History: Appendectomy Additional Past Surgical History / Comment(s): GLASS REMOVED FROM RT LUNG TEEN Past Anesthesia/Blood Transfusion Reactions: No Reported Reaction Past Psychological History: No Psychological Hx Reported Past Alcohol Use History: None Reported Past Drug Use History: None Reported Plan - Discharge Summary New Discharge Prescriptions: New Aspirin 81 mg PO DAILY tab Continue Albuterol Sulfate [Albuterol Sulfate Hfa] 1 - 2 puff PO RT-Q6H PRN PRN Reason: Shortness Of Breath predniSONE [Deltasone] 20 mg PO BID Naproxen [Naprosyn] 500 mg PO BID PRN PRN Reason: Pain Amoxic-Pot Clav 875-125Mg [Augmentin 875-125] 1 tab PO BID dilTIAZem HCL [dilTIAZem HCL 24Hr ER (CD)] 120 mg PO DAILY Ipratropium-Albuterol Nebulize [Duoneb 0.5 mg-3 mg/3 ml Soln] 3 ml INHALATION RT-QID PRN PRN Reason: Shortness Of Breath Fluticasone Propion/Salmeterol [Advair Hfa 230-21 Mcg Inhaler] 2 puff INHALATION RT-BID Atorvastatin [Lipitor] 40 mg PO DAILY Losartan [Cozaar] 50 mg PO DAILY Discharge Medication List Albuterol Sulfate [Albuterol Sulfate Hfa] 1 - 2 puff PO RT-Q6H PRN 09/09/23 [History] Amoxic-Pot Clav 875-125Mg [Augmentin 875-125] 1 tab PO BID 09/09/23 [History] Atorvastatin [Lipitor] 40 mg PO DAILY 09/09/23 [History] Fluticasone Propion/Salmeterol [Advair Hfa 230-21 Mcg Inhaler] 2 puff INHALATION RT-BID 09/09/23 [History] Ipratropium-Albuterol Nebulize [Duoneb 0.5 mg-3 mg/3 ml Soln] 3 ml INHALATION RT-QID PRN 09/09/23 [History] Naproxen [Naprosyn] 500 mg PO BID PRN 09/09/23 [History] predniSONE [Deltasone] 20 mg PO BID 09/09/23 [History] Aspirin 81 mg PO DAILY tab 09/10/23 [Rx] Losartan [Cozaar] 50 mg PO DAILY 09/10/23 [History] dilTIAZem HCL [dilTIAZem HCL 24Hr ER (CD)] 120 mg PO DAILY 09/10/23 [History] Follow up Appointment(s)/Referral(s): Gera Denton MD [Medical Doctor] - 3 Weeks Zay Travis MD [REFERRING] - 1-2 days Patient Instructions/Handouts: Chest Pain (DC) Activity/Diet/Wound Care/Special Instructions: [id number] 1 can 3 times daily Follow-up outpatient with dietitian for malnutrition
[2023-09-11] MEDS ORDERED: ASPIRIN 81 MG PO SCH (09:00)
== END 2023-09-10 14:40 | disposition home or self-care (01) ==
LOC: EC 13:24 → 6NMEDSUR 15:04
PROVIDERS: ADMIT Hospitalist; ATTEND Hospitalist
DX: R07.89 Other chest pain (principal); I10 Essential (primary) hypertension; E78.5 Hyperlipidemia, unspecified; M54.50 Low back pain, unspecified; G89.29 Other chronic pain; J44.9 Chronic obstructive pulmonary disease, unspecified; E44.0 Moderate protein-calorie malnutrition; Z87.891 Personal history of nicotine dependence; Z90.2 Acquired absence of lung [part of]; Z85.118 Personal history of other malignant neoplasm of bronchus and lung; Z82.49 Family history of ischemic heart disease and other diseases of the circulatory system; Z79.899 Other long term (current) drug therapy; Z79.82 Long term (current) use of aspirin
CPT/HCPCS: 96372; 99285; 36415; 94640 ×2; 93005 ×2; 93306; 93351; 80061; 80053; 83735; 84484; 85025; 85610; 85730; 71046; G0378 ×2; J7512 ×2

== ENCOUNTER 2024-03-04 03:04 | Observation (INO) | payer OTHER ==
[2024-03-04 03:15] VITALS: TEMP 97.7
--- NOTE | 2024-03-04 03:21 | ED ---
General Adult HPI - General Chief complaint: Chest Pain Stated complaint: SHANITA Source: patient Mode of arrival: EMS Limitations: no limitations - History of Present Illness Initial comments: Patient is a 53-year-old gentleman the past medical history of lung cancer in remission since 2018, tachycardia for which he takes Cardizem presenting today for shortness of breath and burning chest pain. Patient states that earlier this evening he began experiencing shortness of breath and shortly after noted burning chest pain that radiated down his left arm. He checked his home pulse oximeter and his heart rate was approximately 150 so he called EMS. Patient was given 50 mcg of fentanyl and 325 mg aspirin per EMS which did briefly improve patient's pain. Patient states the pain seems to worsen as his heart rate goes up. Endorses intermittent headache at the back of his head and dizziness when his heart rate increases. Has had headaches like this in the past. He denies vision changes, new numbness or weakness. Denies slurred speech. Chest pain does not radiate to his back. Denies history/of prior PE/DVT. No recent surgeries, hospitalizations or travel. Is not currently undergoing chemotherapy or radiation. No hemoptysis. No lower extremity swelling. Has not been sick recently though does state he has a weird taste in the back of his throat that feels like he may be coming down with pneumonia. States he is seeing cardiology in the past for similar chest pain - Related Data Home Medications Medication Instructions Recorded Confirmed Albuterol Sulfate [Albuterol 2 puff PO RT-Q6H PRN 09/09/23 03/04/24 Sulfate Hfa] Fluticasone Propion/Salmeterol 1 puff INHALATION RT-BID 09/09/23 03/04/24 [Advair Hfa 230-21 Mcg Inhaler] Naproxen [Naprosyn] 500 mg PO BID PRN 09/09/23 03/04/24 Losartan [Cozaar] 50 mg PO DAILY 09/10/23 03/04/24 dilTIAZem HCL [dilTIAZem HCL 24Hr 120 mg PO DAILY 09/10/23 03/04/24 ER (CD)] Celecoxib [CeleBREX] 200 mg PO DAILY 03/04/24 03/04/24 traMADol HCl [Ultram] 50 mg PO BID PRN 03/04/24 03/04/24 Previous Rx's Medication Instructions Recorded Metoprolol Succinate (ER) [Toprol 25 mg PO DAILY 30 Days #30 tab 03/04/24 XL] Allergies Allergy/AdvReac Type Severity Reaction Status Date / Time No Known Allergies Allergy Verified 03/04/24 07:14 Review of Systems ROS Statement: Those systems with pertinent positive or pertinent negative responses have been documented in the HPI. ROS Other: All systems not noted in ROS Statement are negative. Past Medical History Past Medical History: Cancer, Respiratory Disorder Additional Past Medical History / Comment(s): DX WITH LUNG CANCER-TO HAVE UPPER LEFT LOBE REMOVED AT [facility] 07/06/17 History of Any Multi-Drug Resistant Organisms: None Reported Past Surgical History: Appendectomy Additional Past Surgical History / Comment(s): GLASS REMOVED FROM RT LUNG TEEN Past Anesthesia/Blood Transfusion Reactions: No Reported Reaction Past Psychological History: No Psychological Hx Reported Past Alcohol Use History: None Reported Past Drug Use History: None Reported - Past Family History Mother Family Medical History: No Reported History General Exam - General Exam Comments Initial Comments: PE: CONSTITUTIONAL: Mild distress, ill-appearing, nontoxic SKIN: Warm, dry, no jaundice, hives or petechiae EYES: Pupils are equally round, extraocular movements intact without nystagmus, clear conjunctiva, non-icteric sclera HENT: Normocephalic, atraumatic, dry mucus membranes, oropharynx clear without exudates NECK: , Full range of motion, normal appearance PULMONARY: Clear to auscultation without wheezes, rhonchi, or rales, normal excursion, no accessory muscle use and no stridor CARDIOVASCULAR: Tachycardia, regular rhythm normal S1 and S2. No appreciated murmurs, rubs or gallops. Strong and equal bilateral radial and dorsalis pedis pulses with intact distal perfusion. No lower extremity edema GASTROINTESTINAL: Soft, active bowel sounds throughout, non-tender, non- distended, no palpable masses, no rebound or guarding. No hepatosplenomegaly MUSCULOSKELETAL: Extremities have no gross deformity, no edema, redness, or swelling. No calf swelling NEUROLOGIC:_a/o x 3, GCS 15, normal mentation and speech. Moves all extremities x 4 without motor or sensory deficit PSYCHIATRIC:_normal mood and affect, thought process is clear and linear Limitations: no limitations Course Vital Signs 03/04/24 03/04/24 03/04/24 03:07 05:26 10:47 Temperature 97.7 F Pulse Rate 105 H 71 58 L Respiratory 20 20 18 Rate Blood Pressure 168/101 131/84 131/87 O2 Sat by Pulse 100 97 98 Oximetry 03/04/24 03/04/24 16:09 19:02 Temperature Pulse Rate 58 L 64 Respiratory 16 16 Rate Blood Pressure 155/89 108/62 O2 Sat by Pulse 100 98 Oximetry EKG Findings - EKG Comments: EKG Findings:: EKG 1, performed at 3:06 AM, sinus tachycardia with respiratory variation, rate 92 bpm, QRS duration 94 ms, QT/QTc 327/377 ms, there is a PVC present, questionable 0.[address] elevation in V2, Q wave V2 V3, no reciprocal depressionsCompared to EKG performed on 09/10/2023, 0.[address] elevation in V2 appears new from prior, otherwise Q wave in V2, V3 are similar to prior and present on prior EKG, large T waves in V3 and V4 are similar to today, otherwise no new ST elevations or depressions when compared to prior. Repeat EKG performed at 3:19 AM due to persistent chest pain. Tachycardia, rate 109 bpm, [place] interval 142 ms, QRS duration 90 ms, QT/QTc 322/36 ms, normal axis, consistent with prior EKG, no evolving ST elevations or new ST elevations or de pressions Medical Decision Making - Medical Decision Making Was pt. sent in by a medical professional or institution (, PA, REGISTERED ROUTE ASSOCIATE, urgent care, hospital, or senior care...) When possible be specific @ -No Did you speak to anyone other than the patient for history (EMS, parent, family, police, friend...)? What history was obtained from this source @ -I spoke with paramedics who assisted in providing history, stated that on their arrival patient's initial blood pressure was 200/100 heart rate was in the 150s, repeat blood pressure without intervention was then 140 systolic and seem to correlate with the decrease in patient's heart rate, patient received 324 mg aspirin and 50 micrograms fentanyl per EMS, Did you review nursing and triage notes (agree or disagree)? Why? @ -I reviewed and agree with nursing and triage notes Were old charts reviewed (outside hosp., previous admission, EMS record, old EKG, old radiological studies, urgent care reports/EKG's, senior care records)? Report findings @Medical records reviewed, reviewed prior EKG when patient was here for chest pain in August 2023 Differential Diagnosis (chest pain, altered mental status, abdominal pain women, abdominal pain men, vaginal bleeding, weakness, fever, dyspnea, syncope, headache, dizziness, GI bleed, back pain, seizure, CVA, palpatations, mental health, musculoskeletal)? @ -Differential Chest Pain: Stable Angina, Unstable Angina, STEMI, NSTEMI pericarditis, pleurisy, chostochondirits, Pneumothorax, Musculoskeletal, Esophageal Spasm GERD, Cholecystitis, Pancreatitis, Zoster, this is not meant to be an all-inclusive list. EKG interpreted by me (3pts min.). @ -As above X-rays interpreted by me (1pt min.). @Status post left lobectomy, questionable left lower lobe consolidation however when compared to chest x-ray performed on 09/09/2023 this appears similar and stable to prior, no cardiomegaly CT interpreted by me (1pt min.). @ -None done U/S interpreted by me (1pt. min.). @ -None done What testing was considered but not performed or refused? (CT, X-rays, U/S, labs)? Why? @ -None What meds were considered but not given or refused? Why? @IV metoprolol was considered to control patient's heart rate on arrival especially given tachycardia was associated with chest pain however as patient takes Cardizem at home IV Cardizem was given first and resolved patient's tachycardia Did you discuss the management of the patient with other professionals (professionals i.e. , PA, REGISTERED ROUTE ASSOCIATE, lab, RT, psych nurse, social media job titles, security systems technician, teacher, nuclear medicine officer, upper caser)? Give summary @ -No Was smoking cessation discussed for >3mins.? @ -No Was critical care preformed (if so, how long)? @ -Yes, 35 minutes Were there social determinants of health that impacted care today? How? (Homelessness, low income, unemployed, alcoholism, drug addiction, tra nsportation, low edu. Level, literacy, decrease access to med. care, care home, rehab)? @ -No Was there de-escalation of care discussed even if they declined (Discuss DNR or withdrawal of care, Hospice)? @ -No What co-morbidities impacted this encounter? (DM, HTN, Smoking, COPD, CAD, Cancer, CVA, ARF, Chemo, Hep., AIDS, mental health diagnosis, sleep apnea, morbid obesity)? @History lung cancer, currently in remission, Was patient admitted / discharged? Hospital course, mention meds given and route, prescriptions, significant lab abnormalities, going to OR and other pertinent info. @Admission- this is a pleasant 53-year-old gentleman with past medical history of lung cancer status post lobectomy intermission since 2018, tachycardia for which he takes Cardizem presenting today hypertension,shortness of breath and chest pain. Patient seen and assessed immediately upon arrival, history obtaine d by EMS and patient. Patient chronically ill-appearing, nontoxic and in mild distress secondary to chest pain. Patient tachycardic with heart rates in the 150s, blood pressure mildly hypertensive, systolic blood pressure 164. Chest pain is nonradiating to the back and he has equal pulses bilaterally with lungs clear to auscultation. I discussed with patient plan for SL nitroglycerin, morphine, IV Cardizem, labs, EKG and imaging. Patient is agreeable plan of care. I anticipate admission. Patient's chest pain resolved after 1 sublingual nitroglycerin, morphine and with rate controlled after 10 mg IV Cardizem. Initial troponin within normal limits. Chest x-ray shows no acute process. Discussed with patient plan for admission due to high risk chest pain. Patient agreeable plan. Case discussed with Dr. Baldwin, [facility], [place] [facility], kindly accept patient for admission. Patient admitted in stable condition Undiagnosed new problem with uncertain prognosis? @ -No Drug Therapy requiring intensive monitoring for toxicity (Heparin, Nitro, Insulin, Cardizem)? @ -No Were any procedures done? @ -No Diagnosis/symptom? @Chest pain, tachycardia, hypertension Acute, or Chronic, or Acute on Chronic? @Acute Uncomplicated (without systemic symptoms) or Complicated (systemic symptoms)? @Complicated Side effects of treatment? @ -No Exacerbation, Progression, or Severe Exacerbation? @ -No Poses a threat to life or bodily function? How? (Chest pain, [place], [place], pneumonia, PE, COPD, DKA, ARF, appy, cholecystitis, CVA, Diverticulitis, Homicidal, Suicidal, threat to staff... and all critical care pts) @Yes, if left uncontrolled may result in STEMI heart failure or cardiac arrest - Lab Data Result diagrams: 03/04/24 03:15 03/04/24 03:15 Lab Results 03/04/24 03/04/24 03/04/24 Range/Units 03:15 03:15 03:15 WBC 12.9 H (3.8-10.6) k/uL RBC 4.48 (4.30-5.90) m/uL Hgb 14.0 (13.0-17.5) gm/dL Hct 41.3 (39.0-53.0) % MCV 92.3 (80.0-100.0) fL MCH 31.3 (25.0-35.0) pg MCHC 33.9 (31.0-37.0) g/dL RDW 13.3 (11.5-15.5) % Plt Count 327 (150-450) k/uL MPV 7.4 Neutrophils % 64 % Lymphocytes % 27 % Monocytes % 5 % Eosinophils % 3 % Basophils % 1 % Neutrophils # 8.3 H (1.3-7.7) k/uL Lymphocytes # 3.5 (1.0-4.8) k/uL Monocytes # 0.6 (0-1.0) k/uL Eosinophils # 0.3 (0-0.7) k/uL Basophils # 0.1 (0-0.2) k/uL PT 10.4 (10.0-12.5) sec INR 0.9 (<1.2) APTT 22.4 (22.0-30.0) sec D-Dimer 0.18 (<0.60) mg/L FEU Sodium 141 (137-145) mmol/L Potassium 3.3 L (3.5-5.1) mmol/L Chloride 109 H (98-107) mmol/L Carbon Dioxide 24 (22-30) mmol/L Anion Gap 8 mmol/L BUN 9 (9-20) mg/dL Creatinine 0.85 (0.66-1.25) mg/dL Est GFR (CKD-EPI)AfAm >90 (>60 ml/min/1.73 sqM) Est GFR (CKD-EPI)NonAf >90 (>60 ml/min/1.73 sqM) Glucose 115 H (74-99) mg/dL Calcium 10.2 (8.4-10.2) mg/dL Magnesium 2.0 (1.6-2.3) mg/dL Total Bilirubin 0.5 (0.2-1.3) mg/dL AST 17 (17-59) U/L ALT 13 (4-49) U/L Alkaline Phosphatase 97 (38-126) U/L Troponin I (0.000-0.034) ng/mL NT-Pro-B Natriuret Pep 102 pg/mL Total Protein 6.6 (6.3-8.2) g/dL Albumin 4.5 (3.5-5.0) g/dL Amylase 61 (30-110) U/L Lipase 72 (23-300) U/L TSH 3.950 (0.465-4.680) mIU/L Urine Opiates Screen (NotDetected) Ur Oxycodone Screen (NotDetected) Urine Methadone Screen (NotDetected) Ur Barbiturates Screen (NotDetected) U Tricyclic Antidepress (NotDetected) Ur Phencyclidine Scrn (NotDetected) Ur Amphetamines Screen (NotDetected) U Methamphetamines Scrn (NotDetected) U Benzodiazepines Scrn (NotDetected) Urine Cocaine Screen (NotDetected) U Marijuana (THC) Screen (NotDetected) 03/04/24 03/04/24 03/04/24 Range/Units 03:15 03:50 06:15 WBC (3.8-10.6) k/uL RBC (4.30-5.90) m/uL Hgb (13.0-17.5) gm/dL Hct (39.0-53.0) % MCV (80.0-100.0) fL MCH (25.0-35.0) pg MCHC (31.0-37.0) g/dL RDW (11.5-15.5) % Plt Count (150-450) k/uL MPV Neutrophils % % Lymphocytes % % Monocytes % % Eosinophils % % Basophils % % Neutrophils # (1.3-7.7) k/uL Lymphocytes # (1.0-4.8) k/uL Monocytes # (0-1.0) k/uL Eosinophils # (0-0.7) k/uL Basophils # (0-0.2) k/uL PT (10.0-12.5) sec INR (<1.2) APTT (22.0-30.0) sec D-Dimer (<0.60) mg/L FEU Sodium (137-145) mmol/L Potassium (3.5-5.1) mmol/L Chloride (98-107) mmol/L Carbon Dioxide (22-30) mmol/L Anion Gap mmol/L BUN (9-20) mg/dL Creatinine (0.66-1.25) mg/dL Est GFR (CKD-EPI)AfAm (>60 ml/min/1.73 sqM) Est GFR (CKD-EPI)NonAf (>60 ml/min/1.73 sqM) Glucose (74-99) mg/dL Calcium (8.4-10.2) mg/dL Magnesium (1.6-2.3) mg/dL Total Bilirubin (0.2-1.3) mg/dL AST (17-59) U/L ALT (4-49) U/L Alkaline Phosphatase (38-126) U/L Troponin I <0.012 <0.012 (0.000-0.034) ng/mL NT-Pro-B Natriuret Pep pg/mL Total Protein (6.3-8.2) g/dL Albumin (3.5-5.0) g/dL Amylase (30-110) U/L Lipase (23-300) U/L TSH (0.465-4.680) mIU/L Urine Opiates Screen Detected H (NotDetected) Ur Oxycodone Screen Not Detected (NotDetected) Urine Methadone Screen Not Detected (NotDetected) Ur Barbiturates Screen Not Detected (NotDetected) U Tricyclic Antidepress Not Detected (NotDetected) Ur Phencyclidine Scrn Not Detected (NotDetected) Ur Amphetamines Screen Not Detected (NotDetected) U Methamphetamines Scrn Not Detected (NotDetected) U Benzodiazepines Scrn Not Detected (NotDetected) Urine Cocaine Screen Not Detected (NotDetected) U Marijuana (THC) Screen Not Detected (NotDetected) Disposition Clinical Impression: Chest pain Disposition: ADMITTED IP TO THIS HOSP Condition: Stable
[2024-03-04] MEDS: DILTIAZEM 5 MG/ML 5 ML VIAL IVP STA (03:25)
[2024-03-04] MEDS: SODIUM CHLORIDE 0.9% 1,000 ML IV STA (03:27)
[2024-03-04] MEDS: NITROGLYCERIN SL TABS 0.4 MG TAB SUBLINGUAL STA (03:27)
[2024-03-04 03:30] LABS: Basophils # (A) 0.1 k/uL (0-0.2); Basophils % (A) 1 %; Eosinophils # (A) 0.3 k/uL (0-0.7); Eosinophils % (A) 3 %; HCT 41.3 % (39.0-53.0); Lymphocytes # (A) 3.5 k/uL (1.0-4.8); Lymphocytes % (A) 27 %; MCH 31.3 pg (25.0-35.0); MCHC 33.9 g/dL (31.0-37.0); MCV 92.3 fL (80.0-100.0); Mean Platelet Volume 7.4; Monocytes # (A) 0.6 k/uL (0-1.0); Monocytes % (A) 5 %; Neutrophils # (A) 8.3 k/uL (1.3-7.7); Neutrophils % (A) 64 %; Platelet Count 327 k/uL (150-450); RBC 4.48 m/uL (4.30-5.90); RDW 13.3 % (11.5-15.5); WBC 12.9 k/uL (3.8-10.6)
[2024-03-04] MEDS: ONDANSETRON 4 MG/2 ML VIAL IVP STA (03:30)
[2024-03-04] MEDS: ACETAMINOPHEN TAB 500 MG TAB PO STA (03:31)
[2024-03-04] MEDS: MORPHINE SULFATE 4 MG/ML SYRINGE IV STA (03:33)
--- NOTE | 2024-03-04 03:40 | XR ---
EXAMINATION TYPE: XR chest 1V portable DATE OF EXAM: 03/04/2024 COMPARISON: Chest x-ray September 09, 2023 CLINICAL INDICATION: Male, 53 years old with history of chest pain; TECHNIQUE: 2 frontal upright views of the chest are obtained. FINDINGS: Left-sided volume loss with moderate left apical pleural thickening and linear scarring in the left lung base is redemonstrated. No new focal airspace opacity or pneumothorax seen bilaterally . The cardiac silhouette size is stable and within normal limits. The osseous structures are intact . IMPRESSION: Chronic changes without acute pulmonary process. [facility], , 03/04/2024 3:38 AM
[2024-03-04 03:41] LABS: ALT 13 U/L (4-49); AST 17 U/L (17-59); African American GFR (CKD) >90 (>60 ml/min/1.73 sqM); Albumin 4.5 g/dL (3.5-5.0); Alkaline Phosphatase 97 U/L (38-126); Amylase 61 U/L (30-110); Anion Gap 8 mmol/L; Blood Urea Nitrogen 9 mg/dL (9-20); Calcium 10.2 mg/dL (8.4-10.2); Carbon Dioxide 24 mmol/L (22-30); Chloride 109 mmol/L (98-107); Glucose 115 mg/dL (74-99); Lipase 72 U/L (23-300); Non-African American GFR(CKD) >90 (>60 ml/min/1.73 sqM); Potassium 3.3 mmol/L (3.5-5.1); Sodium 141 mmol/L (137-145); Total Bilirubin 0.5 mg/dL (0.2-1.3); Total Protein 6.6 g/dL (6.3-8.2)
[2024-03-04 03:50] LABS: NT-Pro-B-Type Natriuretic Pept 102 pg/mL
[2024-03-04 04:16] LABS: INR 0.9 (<1.2); Partial Thromboplastin Time 22.4 sec (22.0-30.0); Prothrombin Time 10.4 sec (10.0-12.5)
[2024-03-04 04:29] LABS: Amphetamine Screen,Urine Not Detected (NotDetected); Barbiturate Screen,Urine Not Detected (NotDetected); Benzodiazepines Screen,Urine Not Detected (NotDetected); Cocaine Screen,Urine Not Detected (NotDetected); Methadone Screen, Urine Not Detected (NotDetected); Opiate Screen,Urine Detected (NotDetected); Oxycodone Screen, Urine Not Detected (NotDetected); Phencyclidine Screen,Urine Not Detected (NotDetected); Tricyclic Antidepressant,Urine Not Detected (NotDetected); Urn Cannabinoid Scrn Not Detected (NotDetected)
[2024-03-04] MEDS: POTASSIUM CHLORIDE 20 MEQ in WATER FOR INJECTION 1 100ML.BAG IVPB STA (04:55)
[2024-03-04] MEDS ORDERED: NITROGLYCERIN SL TABS 0.4 MG TAB SUBLINGUAL PRN (06:10)
[2024-03-04] MEDS ORDERED: ALPRAZolam 0.25 MG TAB PO PRN (06:19)
[2024-03-04] MEDS ORDERED: MORPHINE SULFATE 4 MG/ML SYRINGE IV PRN (06:19)
[2024-03-04] MEDS ORDERED: ACETAMINOPHEN TAB 325 MG TAB PO PRN (06:19)
[2024-03-04] MEDS ORDERED: IPRATROPIUM-ALBUTEROL 3 ML NEB INHALATION PRN ×2 (06:24→11:47)
[2024-03-04] MEDS: DILTIAZEM CD 120 MG CAP.ER.24H PO SCH (08:20)
[2024-03-04] MEDS: ATORVASTATIN 40 MG TAB PO SCH (08:20)
[2024-03-04] MEDS: ENOXAPARIN 40 MG/0.4 ML SYRINGE SQ SCH (08:20)
[2024-03-04] MEDS: LOSARTAN 50 MG TAB PO SCH (08:20)
[2024-03-04] MEDS: METOPROLOL SUCCINATE (ER) 25 MG TAB.ER.24H PO SCH (09:35)
--- NOTE | 2024-03-04 10:46 | P.CRDCN ---
History of Present Illness History of present illness: HISTORY OF PRESENT ILLNESS: This is a 53-year-old male with a past medical history significant for hypertension, hyperlipidemia, former nicotine dependence, lung cancer with previous lobectomy, and palpitations. Patient follows in the office with Dr. Thacker. We have been asked to see the patient in consultation for chest pain. Patient examined at the bedside in the emergency room. Patient states yesterday he began to have some chest pain and palpitations. He checked his pulse ox at home and noted that his heart rate was high. He called 911 and was brought to the hospital for further evaluation. Apparently the patient's blood pressure was 200/100 and his heart rate was in the 150s when EMS arrived. He was given fentanyl and aspirin. EKGs completed here in the emergency room revealed sinus tachycardia. Patients bedside telemetry reveals sinus mechanism with a heart rate in the 70s. He currently denies chest pain or pressure. Denies shortness of breath. Denies palpitations. Blood pressure this morning 131/84. DIAGNOSTICS: - EKG reveals sinus tachycardia with no signs of acute ischemia - Chest xray chronic changes without acute pulmonary process - Laboratory data: WBC 12.9. Hemoglobin 14.0. Platelet count 327. D-dimer 0.18. Sodium 141. Potassium 3.3. BUN 9. Creatinine 0.85. Magnesium 2.0. Troponin negative x 3. TSH 3.950. - Current home cardiac medications include Cardizem CD 120 mg daily and losartan 50 mg daily - Most recent echocardiogram obtained in, no significant valvular dysfunction, mildly dilated RV with preserved systolic function. Signs of RV pressure overload with septal stridor. However RVSP estimated at 33 mmHg. - Patient underwent stress echo in August 2023 revealing ejection fraction 55 to 60% August 2023 revealing overall low probability for obstructive CAD however nondiagnostic as echo images were acquired late at 75% of max predicted heart rate. - Cardiac catheterization history: Patient denies REVIEW OF SYSTEMS: At the time of my exam: CONSTITUTIONAL: Denies fever or chills. HEENT: Denies blurred vision, vision changes, or eye pain. Denies hemoptysis CARDIOVASCULAR: Denies chest pain. Denies orthopnea. Denies PND. Denies palpitations RESPIRATORY: Denies shortness of breath. GASTROINTESTINAL: Denies abdominal pain. Denies nausea or vomiting. HEMATOLOGIC: Denies bleeding disorders. GENITOURINARY: Denies any blood in urine. SKIN: Denies pruitis. Denies rash. PHYSICAL EXAM: VITAL SIGNS: Reviewed. GENERAL: Well-developed in no acute distress. HEENT: Head is normocephalic. Pupils are equal, round. Sclerae anicteric. Mucous membranes of the mouth are moist. Neck supple. No JVD or thyromegaly LUNGS: Respirations even and unlabored. Lungs essentially clear to auscultation bilaterally. HEART: Regular rate and rhythm. S1 and S2 heard. ABDOMEN: Soft. Nondistended. Nontender. EXTREMITIES: Normal range of motion. No clubbing or cyanosis. Peripheral pulses intact. No lower extremity edema NEUROLOGIC: Awake and alert. Oriented x 3. ASSESSMENT: Tachycardia, EKG reveals sinus tachycardia History of palpitations History of hypertension History of hyperlipidemia Former nicotine dependence History of lung cancer with previous lobectomy PLAN: No need to obtain echocardiogram as this was performed in August 2023 Resume home cardiac medications Add metoprolol succinate 25 mg daily Continue telemetry monitoring Event monitor from Nov-Dec 2023 revealed sinus mechanism with one 4 beat run of VT. No significant arrhythmias noted. Patient may be discharged home this afternoon from a cardiac standpoint Nurse practitioner note has been reviewed by physician. Signing provider agrees with the documented findings, assessment, and plan of care documented by DEPUTY JUVENILE OFFICER as a scribe. Past Medical History Past Medical History: Cancer, Respiratory Disorder Additional Past Medical History / Comment(s): DX WITH LUNG CANCER-TO HAVE UPPER LEFT LOBE REMOVED AT [facility]. 07/06/17 History of Any Multi-Drug Resistant Organisms: None Reported Past Surgical History: Appendectomy Additional Past Surgical History / Comment(s): GLASS REMOVED FROM RT LUNG TEEN Past Anesthesia/Blood Transfusion Reactions: No Reported Reaction Past Psychological History: No Psychological Hx Reported Past Alcohol Use History: None Reported Past Drug Use History: None Reported - Past Family History Mother Family Medical History: No Reported History Medications and Allergies Home Medications Medication Instructions Recorded Confirmed Type RX: Albuterol Sulfate [Albuterol 2 puff PO RT-Q6H PRN 09/09/23 03/04/24 History Sulfate Hfa] RX: Fluticasone Propion/Salmeterol 1 puff INHALATION RT-BID 09/09/23 03/04/24 History [Advair Hfa 230-21 Mcg Inhaler] RX: Naproxen [Naprosyn] 500 mg PO BID PRN 09/09/23 03/04/24 History RX: Losartan [Cozaar] 50 mg PO DAILY 09/10/23 03/04/24 History RX: dilTIAZem HCL [dilTIAZem HCL 120 mg PO DAILY 09/10/23 03/04/24 History 24Hr ER (CD)] Celecoxib [CeleBREX] 200 mg PO DAILY 03/04/24 03/04/24 History traMADol HCl [Ultram] 50 mg PO BID PRN 03/04/24 03/04/24 History Allergies Allergy/AdvReac Type Severity Reaction Status Date / Time No Known Allergies Allergy Verified 03/04/24 07:14 Physical Exam Vitals: Vital Signs Temp Pulse Resp BP Pulse Ox 03/04/24 05:26 71 20 131/84 97 03/04/24 03:07 97.7 F 105 H 20 168/101 100 Intake and Output 03/03/24 03/04/24 03/04/24 22:59 06:59 14:59 Other: Weight 49.895 kg Results 03/04/24 03:15 03/04/24 03:15 Cardiac Enzymes 03/04/24 03/04/24 03/04/24 Range/Units 03:15 03:15 06:15 AST 17 (17-59) U/L Troponin I <0.012 <0.012 (0.000-0.034) ng/mL 03/04/24 Range/Units 09:17 AST (17-59) U/L Troponin I <0.012 (0.000-0.034) ng/mL Coagulation 03/04/24 Range/Units 03:15 PT 10.4 (10.0-12.5) sec APTT 22.4 (22.0-30.0) sec CBC 03/04/24 Range/Units 03:15 WBC 12.9 H (3.8-10.6) k/uL RBC 4.48 (4.30-5.90) m/uL Hgb 14.0 (13.0-17.5) gm/dL Hct 41.3 (39.0-53.0) % Plt Count 327 (150-450) k/uL Comprehensive Metabolic Panel 03/04/24 Range/Units 03:15 Sodium 141 (137-145) mmol/L Potassium 3.3 L (3.5-5.1) mmol/L Chloride 109 H (98-107) mmol/L Carbon Dioxide 24 (22-30) mmol/L BUN 9 (9-20) mg/dL Creatinine 0.85 (0.66-1.25) mg/dL Glucose 115 H (74-99) mg/dL Calcium 10.2 (8.4-10.2) mg/dL AST 17 (17-59) U/L ALT 13 (4-49) U/L Alkaline Phosphatase 97 (38-126) U/L Total Protein 6.6 (6.3-8.2) g/dL Albumin 4.5 (3.5-5.0) g/dL Current Medications Generic Name Dose Route Start Last Admin Trade Name Freq PRN Reason Stop Dose Admin Acetaminophen 650 mg 03/04/24 06:19 Acetaminophen Tab 325 Mg Tab PO Q4HR PRN Pain Albuterol/Ipratropium 3 ml 03/04/24 06:24 Ipratropium-Albuterol 3 Ml Neb INHALATION RT-QID PRN Shortness Of Breath Alprazolam 0.25 mg 03/04/24 06:19 Alprazolam 0.25 Mg Tab PO QID PRN Anxiety Atorvastatin Calcium 40 mg 03/04/24 09:00 03/04/24 08:20 Atorvastatin 40 Mg Tab PO 40 mg DAILY EBONY Administration Budesonide/Formoterol Fumarate 2 puff 03/04/24 08:00 Symbicort 160-4.5 Mcg Inhaler INHALATION RT-BID EBONY Diltiazem HCl 120 mg 03/04/24 09:00 03/04/24 08:20 Diltiazem Cd 120 Mg Cap.Er.24h PO 120 mg DAILY EBONY Administration Enoxaparin Sodium 40 mg 03/04/24 09:00 03/04/24 08:20 Enoxaparin 40 Mg/0.4 Ml Syringe SQ 40 mg DAILY EBONY Administration Losartan Potassium 50 mg 03/04/24 09:00 03/04/24 08:20 Losartan 50 Mg Tab PO 50 mg DAILY EBONY Administration Metoprolol Succinate 25 mg 03/04/24 09:00 03/04/24 09:35 Metoprolol Succinate (Er) 25 Mg Tab.Er.24h PO 25 mg DAILY EBONY Administration Morphine Sulfate 4 mg 03/04/24 06:19 Morphine Sulfate 4 Mg/Ml Syringe IV 03/11/24 06:18 Q30M PRN Chest Pain Nitroglycerin 0.4 mg 03/04/24 06:10 Nitroglycerin Sl Tabs 0.4 Mg Tab SUBLINGUAL Q5M PRN Chest Pain Intake and Output 03/03/24 03/04/24 03/04/24 22:59 06:59 14:59 Other: Weight 49.895 kg 03/04/24 03:15 03/04/24 03:15
--- NOTE | 2024-03-04 11:54 | P.HPIM ---
History of Present Illness H&P Date: 03/04/24 History of Presenting Illness: Patient is a 53-year-old male with a past medical history of lung cancer status post left upper lobectomy, hypertension, sinus tachycardia on Cardizem, and COPD. He presented to the emergency department with a chief complaint of shortness of breath and chest pain. Patient reports he was experiencing shortness of breath and a dry cough and developed midsternal chest pain began last night. Patient reports this pain radiated into and down his left arm and was accompanied by palpitations. He reports he checked his pulse ox and his heart rate was in the 150s so he called EMS. Patient denies having any fevers, chills, diaphoresis, headache, lightheadedness, dizziness, abdominal pain, nausea, vomiting, or experiencing any numbness/swelling/focal weakness in his extremities. Upon arrival to our facility, patient underwent evaluation in the emergency department. Vital signs upon arrival show blood pressure 168/101, heart rate 105, respiratory rate 20, temp 97.7 F, and SpO2 of 100% on room air. EKG completed showing sinus tachycardia 109 bpm with T wave inversion lateral lead aVL. Chest x-ray completed negative for acute cardiopulmonary process. Labs completed and reviewed. CBC showing leukocytosis with WBC count of 12.9. Coagulation profile normal findings. D-dimer negative at 0.18. BMP showing hypokalemia with potassium of 3.3 and hyperchloremia with chloride of 109. Blood glucose was 115. Magnesium 2.0. Liver profile unremarkable. Troponin was negative at less than 0.012. TSH normal findings at 3.950. Urinalysis positive for opioids. Patient did receive fentanyl and aspirin by EMS. Patient admitted under our services with consultation to cardiology. Review of systems: Pertinent positives and negatives as discussed in HPI, a complete review of systems was performed and all other systems are negative. Physical exam: Vital signs reviewed and stable. General: Nontoxic, no distress and appears stated age. Derm: Skin warm and dry, normal coloration for ethnicity. Head: Atraumatic, normocephalic and symmetric. Eyes: EOM's intact, no lid lag, and anicteric sclera Mouth: no lip lesions, mucus membranes moist Cardiovascular: regular rate and rhythm with normal S1S2, no murmur, positive po sterior tibial pulses bilaterally, and cap refill < 2 seconds. Lungs: Respirations even, regular, and unlabored on room air. Lungs with soft expiratory wheezes bilaterally. No crackles, rhonchi, rales noted. No accessory muscle usage. Abdominal: soft, nontender to palpation, no guarding, no appreciable organomegaly Ext: ROM intact. No gross muscle atrophy, no edema, no contractures Neuro: Speech clear, face symmetrical and CN II-XII grossly intact with no noted focal neuro deficits Psych: Alert and oriented to person, place, time, and situation. Appropriate and pleasant affect. Assessment and Plan of Care: Chest pain, palpitations and shortness of breath, rule out acute coronary event Sinus tachycardia Hypertension -Cardiology consulted, appreciate recommendations -Telemetry monitoring -Trend troponins -Cardiac diet, NPO at midnight -Aspirin 81 mg daily, atorvastatin 40 mg daily, Cardizem 120 mg daily, and losartan 50 mg daily -Lipid profile with a.m. labs. -Echocardiogram completed 09/10/2023 was reviewed showing an EF of 55 to 60% with mildly dilated RV and signs of RV pressure overload with septal shutter and dilated IVC. -Order placed for Cepheid 4 Plex panel. Hypokalemia -Potassium 3.3. Was replaced in ER. Will continue to monitor with repeat a.m. labs continue to replace abnormal electrolyte values as indicated based upon these findings. COPD, not in acute exacerbation History of lung cancer status post left upper lobectomy -Continue DuoNebs 4 times daily and as needed for wheezing/shortness of breath. -Monitor pulse oximetry. -Provide supplemental oxygen if/as needed to maintain SpO2 equal to or greater than 90%. Data and imaging reviewed: As stated above in HPI. CODE STATUS: Full code DVT prophylaxis: Lovenox Anticipated discharge date: Likely 24 to [address]: Home Patient was seen independently by Nurse Practitioner. This document was prepared using [employer] dictation software. Please allow for errors in model maker fiberglass while rare they do occur. Jack Berry NP rendered care for this patient independently, reviewed the findings and plan as documented in the note above and agree with plan. I did not physically speak with or examine the patient on this date. Past Medical History Past Medical History: Cancer, Respiratory Disorder Additional Past Medical History / Comment(s): DX WITH LUNG CANCER-TO HAVE UPPER LEFT LOBE REMOVED AT [facility]. 07/06/17 History of Any Multi-Drug Resistant Organisms: None Reported Past Surgical History: Appendectomy Additional Past Surgical History / Comment(s): GLASS REMOVED FROM RT LUNG TEEN Past Anesthesia/Blood Transfusion Reactions: No Reported Reaction Past Psychological History: No Psychological Hx Reported Past Alcohol Use History: None Reported Past Drug Use History: None Reported - Past Family History Mother Family Medical History: No Reported History Medications and Allergies Home Medications Medication Instructions Recorded Confirmed Type Albuterol Sulfate [Albuterol 2 puff PO RT-Q6H PRN 09/09/23 03/04/24 History Sulfate Hfa] Fluticasone Propion/Salmeterol 1 puff INHALATION RT-BID 09/09/23 03/04/24 History [Advair Hfa 230-21 Mcg Inhaler] Naproxen [Naprosyn] 500 mg PO BID PRN 09/09/23 03/04/24 History Losartan [Cozaar] 50 mg PO DAILY 09/10/23 03/04/24 History dilTIAZem HCL [dilTIAZem HCL 24Hr 120 mg PO DAILY 09/10/23 03/04/24 History ER (CD)] Celecoxib [CeleBREX] 200 mg PO DAILY 03/04/24 03/04/24 History traMADol HCl [Ultram] 50 mg PO BID PRN 03/04/24 03/04/24 History Allergies Allergy/AdvReac Type Severity Reaction Status Date / Time No Known Allergies Allergy Verified 03/04/24 07:14 Physical Exam Vitals: Vital Signs Temp Pulse Resp BP Pulse Ox 03/04/24 05:26 71 20 131/84 97 03/04/24 03:07 97.7 F 105 H 20 168/101 100 Intake and Output 03/03/24 03/04/24 03/04/24 22:59 06:59 14:59 Other: Weight 49.895 kg Results CBC & Chem 7: 03/04/24 03:15 03/04/24 03:15 Labs: Abnormal Lab Results - Last 24 Hours (Table) 03/04/24 03/04/24 03/04/24 Range/Units 03:15 03:15 03:50 WBC 12.9 H (3.8-10.6) k/uL Neutrophils # 8.3 H (1.3-7.7) k/uL Potassium 3.3 L (3.5-5.1) mmol/L Chloride 109 H (98-107) mmol/L Glucose 115 H (74-99) mg/dL Urine Opiates Screen Detected H (NotDetected)
[2024-03-04] MEDS ORDERED: IPRATROPIUM-ALBUTEROL 3 ML NEB INHALATION SCH (12:00)
[2024-03-04] MEDS: SYMBICORT 160-4.5 MCG INHALER INHALATION SCH (15:18)
[2024-03-04 16:10] VITALS: RESP 16
--- NOTE | 2024-03-04 18:35 | P.DS ---
Providers Date of admission: 03/04/24 06:24 Expected date of discharge: 03/04/24 Attending physician: Roni Baldwin MD Consults: 03/04/24 06:19 Consult Physician Routine Consulting Provider: Dayo Ray Consult Reason/Comments: Chest pain Do you want consulting provider notified?: Yes, Notify in am Primary care physician: Luisa Ramos MD Hospital Course: Discharge Diagnosis: Chest pain, palpitations and shortness of breath. Acute coronary event ruled out. Sinus tachycardia. Patient started on metoprolol succinate 25 mg daily. Hypertension. Patient to continue with Cardizem 120 mg daily and losartan 50 mg daily in addition to being started on metoprolol succinate 25 mg daily. Hypokalemia. Replaced. COPD, not in acute exacerbation. History of lung cancer status post left upper lobectomy Hospital Course: Patient is a 53-year-old male with a past medical history of lung cancer status post left upper lobectomy, hypertension, sinus tachycardia on Cardizem, and COPD. He presented to the emergency department with a chief complaint of shortness of breath and chest pain. Patient reports he was experiencing shortness of breath and a dry cough and developed midsternal chest pain began last night. Patient reports this pain radiated into and down his left arm and was accompanied by palpitations. He reports he checked his pulse ox and his heart rate was in the 150s so he called EMS. Patient denies having any fevers, chills, diaphoresis, headache, lightheadedness, dizziness, abdominal pain, nausea, vomiting, or experiencing any numbness/swelling/focal weakness in his extremities. Upon arrival to our facility, patient underwent evaluation in the emergency department. Vital signs upon arrival show blood pressure 168/101, heart rate 105, respiratory rate 20, temp 97.7 F, and SpO2 of 100% on room air. EKG completed showing sinus tachycardia 109 bpm with T wave inversion lateral lead aVL. Chest x-ray completed negative for acute cardiopulmonary process. Labs completed and reviewed. CBC showing leukocytosis with WBC count of 12.9. Coagulation profile normal findings. D-dimer negative at 0.18. BMP showing hypokalemia with potassium of 3.3 and hyperchloremia with chloride of 109. Blood glucose was 115. Magnesium 2.0. Liver profile unremarkable. Troponin was negative at less than 0.012. TSH normal findings at 3.950. Urinalysis positive for opioids. Patient did receive fentanyl and aspirin by EMS. Patient admitted under our services with consultation to cardiology. Troponins trended all negative at less than 0.012 x 3 draws. Cardiology started patient on metoprolol succinate 25 mg daily. Patient's chest pain and palpitations resolved. Patient reports resolution of shortness of breath. Patient ambulated around the emergency department and per hand tile maker rate did not exceed 70 bpm. Patient has been cleared by cardiology perspective for discharge and is medically stable for discharge at this time. Patient to follow-up outpatient with PCP in 1 to 2 days and with teacher vocational training in 2 weeks. Physical exam: Vital signs reviewed and stable. General: Nontoxic, no distress and appears stated age. Derm: Skin warm and dry, normal coloration for ethnicity. Head: Atraumatic, normocephalic and symmetric. Eyes: EOM's intact, no lid lag, and anicteric sclera Mouth: no lip lesions, mucus membranes moist Cardiovascular: regular rate and rhythm with normal S1S2, no murmur, positive posterior tibial pulses bilaterally, and cap refill < 2 seconds. Lungs: Respirations even, regular, and unlabored on room air. Lungs with soft expiratory wheezes bilaterally. No crackles, rhonchi, rales noted. No accessory muscle usage. Abdominal: soft, nontender to palpation, no guarding, no appreciable organomegaly Ext: ROM intact. No gross muscle atrophy, no edema, no contractures Neuro: Speech clear, face symmetrical and CN II-XII grossly intact with no noted focal neuro deficits Psych: Alert and oriented to person, place, time, and situation. Appropriate and pleasant affect. A total of 33 minutes of time were spent preparing this complex discharge summary. Pt was discharged on 03/04/2024 at 6:30 PM. Patient was seen independently by Nurse Practitioner. This document was prepared using [employer] dictation software. Please allow for errors in fisheries technical officer while rare they do occur. Jack Berry NP rendered care for this patient independently, reviewed the findings and plan as documented in the note above. I did not physically speak with or examine the patient on this date. Patient Condition at Discharge: Stable Plan - Discharge Summary New Discharge Prescriptions: New Metoprolol Succinate (ER) [Toprol XL] 25 mg PO DAILY 30 Days #30 tab Continue Albuterol Sulfate [Albuterol Sulfate Hfa] 2 puff PO RT-Q6H PRN PRN Reason: Shortness Of Breath Naproxen [Naprosyn] 500 mg PO BID PRN PRN Reason: Pain dilTIAZem HCL [dilTIAZem HCL 24Hr ER (CD)] 120 mg PO DAILY Fluticasone Propion/Salmeterol [Advair Hfa 230-21 Mcg Inhaler] 1 puff INHALATION RT-BID Losartan [Cozaar] 50 mg PO DAILY traMADol HCl [Ultram] 50 mg PO BID PRN PRN Reason: Pain Celecoxib [CeleBREX] 200 mg PO DAILY Discharge Medication List Albuterol Sulfate [Albuterol Sulfate Hfa] 2 puff PO RT-Q6H PRN 09/09/23 [History] Fluticasone Propion/Salmeterol [Advair Hfa 230-21 Mcg Inhaler] 1 puff INHALATION RT-BID 09/09/23 [History] Naproxen [Naprosyn] 500 mg PO BID PRN 09/09/23 [History] Losartan [Cozaar] 50 mg PO DAILY 09/10/23 [History] dilTIAZem HCL [dilTIAZem HCL 24Hr ER (CD)] 120 mg PO DAILY 09/10/23 [History] Celecoxib [CeleBREX] 200 mg PO DAILY 03/04/24 [History] Metoprolol Succinate (ER) [Toprol XL] 25 mg PO DAILY 30 Days #30 tab 03/04/24 [Rx] traMADol HCl [Ultram] 50 mg PO BID PRN 03/04/24 [History] Follow up Appointment(s)/Referral(s): Dayo Ray MD [STAFF PHYSICIAN] - 1 Week Luisa Ramso MD [Primary Care Provider] - 1-2 days Patient Instructions/Handouts: Tachycardia (GEN) Activity/Diet/Wound Care/Special Instructions: Activity: As tolerated. Take breaks as needed. Diet: Heart healthy and carb consistent diet. Avoid salts, or foods with hidden salts such as canned or boxed foods and frozen dinners. Extra salt makes your heart work harder and traps the fluid in your body for longer. Special Instructions: Take all of your medications as directed and remember to keep all of your doctor's appointments and follow-up as needed. Thank you for allowing us to participate in your care, it was truly a pleasure having you for our patient!!! Discharge Disposition: HOME SELF-CARE
[2024-03-04 19:03] VITALS: BP 108/62; PULSE 64
[2024-03-05] MEDS ORDERED: ASPIRIN 81 MG PO SCH (09:00)
[2024-03-05] MEDS ORDERED: ASPIRIN 325 MG TAB PO SCH (09:00)
== END 2024-03-04 19:05 | disposition home or self-care (01) ==
LOC: EC 03:04 → 6NMEDSUR 06:24
PROVIDERS: ADMIT Internal Medicine; ATTEND Internal Medicine
DX: R07.89 Other chest pain (principal); E87.6 Hypokalemia; J44.9 Chronic obstructive pulmonary disease, unspecified; I10 Essential (primary) hypertension; R00.0 Tachycardia, unspecified; M79.602 Pain in left arm; E78.5 Hyperlipidemia, unspecified; D72.829 Elevated white blood cell count, unspecified; E87.8 Other disorders of electrolyte and fluid balance, not elsewhere classified; Z79.1 Long term (current) use of non-steroidal anti-inflammatories (NSAID); Z79.899 Other long term (current) drug therapy; Z79.51 Long term (current) use of inhaled steroids; Z90.2 Acquired absence of lung [part of]; Z85.118 Personal history of other malignant neoplasm of bronchus and lung; Z87.891 Personal history of nicotine dependence
CPT/HCPCS: 96361; 96365; 96366; 96372; 96375; 99285; 36415; 93005; 85379; 83880; 80053; 84443; 82150; 83690; 83735; 84484; 85025; 85610; 85730; 80306; 87636; 71045; G0378; J2270; J3480; J2405; J1650; 99291

== ENCOUNTER 2024-03-16 13:40 | Emergency (ER) | payer OTHER ==
[2024-03-16 14:18] VITALS: BP 127/81; PULSE 81; RESP 20; TEMP 98.2
[2024-03-16 16:15] LABS: Basophils # (A) 0.1 k/uL (0-0.2); Basophils % (A) 0 %; Eosinophils % (A) 0 %; HCT 43.6 % (39.0-53.0); HGB 14.2 gm/dL (13.0-17.5); Lymphocytes # (A) 2.1 k/uL (1.0-4.8); Lymphocytes % (A) 15 %; MCH 30.3 pg (25.0-35.0); MCHC 32.7 g/dL (31.0-37.0); MCV 92.6 fL (80.0-100.0); Mean Platelet Volume 7.4; Monocytes # (A) 0.4 k/uL (0-1.0); Monocytes % (A) 3 %; Neutrophils # (A) 11.9 k/uL (1.3-7.7); Neutrophils % (A) 81 %; Platelet Count 302 k/uL (150-450); RBC 4.71 m/uL (4.30-5.90); RDW 12.6 % (11.5-15.5); WBC 14.6 k/uL (3.8-10.6)
--- NOTE | 2024-03-16 16:29 | ED ---
General Adult HPI - General Source: patient, RN notes reviewed Mode of arrival: ambulatory Limitations: no limitations <Erika Nick - Last Filed: 03/16/24 16:26> - General Source: patient, RN notes reviewed, old records reviewed Mode of arrival: ambulatory Limitations: no limitations <Prince Lorenzo - Last Filed: 03/16/24 17:23> - General Chief complaint: Chest Pain Stated complaint: Weakness,Anxiety Time Seen by Provider: 03/16/24 16:26 - History of Present Illness Initial comments: Quick note: 53-year-old male presents to the emergency department for evaluation of presyncope. Patient reports that today he stood up quickly and felt like he was going to pass out. He notes that at that time he had some chest pressure, felt hot and sweaty. He states that he is had these episodes recently and was admitted for this. He states that he was started on metoprolol. (Erika Nick) This is a 53-year-old male to the ER for evaluation of presyncope with some anxiety and chest pain. Prior hospitalizations for chest pain does believe anxiety here in the ER, patient does not want to stay for further evaluation and management, patient will elected discharge upon his 's arrival (Prince Lorenzo) - Related Data Home Medications Medication Instructions Recorded Confirmed Albuterol Sulfate [Albuterol 2 puff PO RT-Q6H PRN 09/09/23 03/04/24 Sulfate Hfa] Fluticasone Propion/Salmeterol 1 puff INHALATION RT-BID 09/09/23 03/04/24 [Advair Hfa 230-21 Mcg Inhaler] Naproxen [Naprosyn] 500 mg PO BID PRN 09/09/23 03/04/24 Losartan [Cozaar] 50 mg PO DAILY 09/10/23 03/04/24 dilTIAZem HCL [dilTIAZem HCL 24Hr 120 mg PO DAILY 09/10/23 03/04/24 ER (CD)] Celecoxib [CeleBREX] 200 mg PO DAILY 03/04/24 03/04/24 traMADol HCl [Ultram] 50 mg PO BID PRN 03/04/24 03/04/24 Previous Rx's Medication Instructions Recorded Metoprolol Succinate (ER) [Toprol 25 mg PO DAILY 30 Days #30 tab 03/04/24 XL] Allergies Allergy/AdvReac Type Severity Reaction Status Date / Time No Known Allergies Allergy Verified 03/16/24 14:18 Review of Systems ROS Other: All systems not noted in ROS Statement are negative. <Erika Nick - Last Filed: 03/16/24 16:26> ROS Other: All systems not noted in ROS Statement are negative. <Prince Lorenzo - Last Filed: 03/16/24 17:23> ROS Statement: Those systems with pertinent positive or pertinent negative responses have been documented in the HPI. Past Medical History Past Medical History: Cancer, Respiratory Disorder Additional Past Medical History / Comment(s): DX WITH LUNG CANCER-TO HAVE UPPER LEFT LOBE REMOVED AT [facility]. 07/06/17 History of Any Multi-Drug Resistant Organisms: None Reported Past Surgical History: Appendectomy Additional Past Surgical History / Comment(s): GLASS REMOVED FROM RT LUNG T EEN Past Anesthesia/Blood Transfusion Reactions: No Reported Reaction Past Psychological History: No Psychological Hx Reported Smoking Status: Former smoker Past Alcohol Use History: None Reported Past Drug Use History: None Reported - Past Family History Mother Family Medical History: No Reported History <Erika Nick - Last Filed: 03/16/24 16:26> General Exam Limitations: no limitations <Erika Nick - Last Filed: 03/16/24 16:26> - General Exam Comments Initial Comments: Visual Physical Exam Vital signs reviewed General: Well-appearing, nontoxic, no acute distress. Head: Normocephalic, atraumatic Eyes: PERRLA, EOMI ENT: Airway patent Chest: Nonlabored breathing Skin: No visual rash, normal skin tone Neuro: Alert and oriented 3 Musculoskeletal: No gross abnormalities (Erika Nick) Course <Prince Lorenzo - Last Filed: 03/16/24 17:23> Vital Signs 03/16/24 14:16 Temperature 98.2 F Pulse Rate 81 Respiratory 20 Rate Blood Pressure 127/81 O2 Sat by Pulse 97 Oximetry - Reevaluation(s) Reevaluation #1: 03/16/24 17:22 Medical records reviewed (Prince Lorenzo) Reevaluation #2: 03/16/24 17:22 Patient symptoms feel improved (Prince Lorenzo) Reevaluation #3: Was pt. sent in by a medical professional or institution ([facility], [facility], urgent care, hospital, or half-way...) When possible be specific @ -no Did you speak to anyone other than the patient for history (EMS, parent, family, police, friend...)? What history was obtained from this source @ -no Did you review nursing and triage notes (agree or disagree)? Why? @ -agree Are old charts reviewed (outside hosp., previous admission, EMS record, old EKG, old radiological studies, urgent care reports/EKG's, half-way records)? Report findings @ -yes Differential Diagnosis (chest pain, altered mental status, abdominal pain women, abdominal pain men, vaginal bleeding, weakness, fever, dyspnea, syncope, headache, dizziness, GI bleed, back pain, seizure, CVA, palpatations, mental health, musculoskeletal)? @ -prior EKG interpreted by me (3pts min.). @ -yes X-rays interpreted by me (1pt min.). @ -no CT interpreted by me (1pt min.). @ -no U/S interpreted by me (1pt. min.). @ -no What testing was considered but not performed or refused? (CT, X-rays, U/S, lab s)? Why? @ -none What meds were considered but not given or refused? Why? @ -none Did you discuss the management of the patient with other professionals (professionals i.e. [facility], [facility] OPENER, lab, RT, psych nurse, delinquency prevention social worker, leather seasoner, teacher, loan officer, case planner)? Give summary @ -no Was smoking cessation discussed for >3mins.? @ -no Was critical care preformed (if so, how long)? @ -no Were there social determinants of health that impacted care today? How? (Homelessness, low income, unemployed, alcoholism, drug addiction, transportation, low edu. Level, literacy, decrease access to med. care, detention, rehab)? @ -none Was there de-escalation of care discussed even if they declined (Discuss DNR or withdrawal of care, Hospice)? DNR status @ -no What co-morbidities impacted this encounter? (DM, HTN, Smoking, COPD, CAD, Cancer, CVA, ARF, Chemo, Hep., AIDS, mental health diagnosis, sleep apnea, morbid obesity)? @ -none Was patient admitted / discharged? Hospital course, mention meds given and route, prescriptions, significant lab abnormalities, going to OR and other pertinent info. @ -53 male to ER with chest pain dizziness and does believe some anxiety. Patient does not want to stay for further evaluation and management, elected to discharge upon arrival Discharge Undiagnosed new problem with uncertain prognosis? @ -no Drug Therapy requiring intensive monitoring for toxicity (Heparin, Nitro, Insulin, Cardizem)? @ -no Were any procedures done? @ -no Diagnosis/symptom? @ -Chest pain Acute, or Chronic, or Acute on Chronic? @ -Acute Uncomplicated (without systemic symptoms) or Complicated (systemic symptoms)? @ -Complicated Side effects of treatment? @ -no Exacerbation, Progression, or Severe Exacerbation? @ -exacerbation Poses a threat to life or bodily function? How? (Chest pain, [place], [place], pneumonia, PE, COPD, DKA, ARF, appy, cholecystitis, CVA, Diverticulitis, Homicidal, Suicidal, threat to staff... and all critical care pts) @ -yes with chest pain (Prince Lorenzo) Reevaluation #4: Differential Chest Pain: Stable Angina, Unstable Angina, STEMI, NSTEMI Aortic Dissection, Pneumothorax, Musculoskeletal, Esophageal Spasm GERD, Cholecystitis, Pancreatitis, Zoster, this is not meant to be an all-inclusive list. (Prince Lorenzo) Medical Decision Making - Lab Data Result diagrams: 03/16/24 16:03 <Erika Nick - Last Filed: 03/16/24 16:26> - Lab Data Result diagrams: 03/16/24 16:03 03/16/24 14:45 - EKG Data -: EKG Interpreted by Me (EKG is sinus 60 VT 133 QRS 100 QTc 392) <Prince Lorenzo - Last Filed: 03/16/24 17:23> - Medical Decision Making Quick note preformed and electronically signed by Erika Nick PA-C (Erika Nick) 53 male to ER with chest pain dizziness and does believe some anxiety. Patient does not want to stay for further evaluation and management, elected to discharge upon arrival (Prince Lorenzo) - Lab Data Lab Results 03/16/24 03/16/24 03/16/24 Range/Units 14:45 14:45 16:03 WBC 14.6 H (3.8-10.6) k/uL RBC 4.71 (4.30-5.90) m/uL Hgb 14.2 (13.0-17.5) gm/dL Hct 43.6 (39.0-53.0) % MCV 92.6 (80.0-100.0) fL MCH 30.3 (25.0-35.0) pg MCHC 32.7 (31.0-37.0) g/dL RDW 12.6 (11.5-15.5) % Plt Count 302 (150-450) k/uL MPV 7.4 Neutrophils % 81 % Lymphocytes % 15 % Monocytes % 3 % Eosinophils % 0 % Basophils % 0 % Neutrophils # 11.9 H (1.3-7.7) k/uL Lymphocytes # 2.1 (1.0-4.8) k/uL Monocytes # 0.4 (0-1.0) k/uL Eosinophils # 0.0 (0-0.7) k/uL Basophils # 0.1 (0-0.2) k/uL PT 10.7 (10.0-12.5) sec INR 1.0 (<1.2) APTT 23.7 (22.0-30.0) sec Sodium 143 (137-145) mmol/L Potassium 4.3 (3.5-5.1) mmol/L Chloride 103 (98-107) mmol/L Carbon Dioxide 29 (22-30) mmol/L Anion Gap 11 mmol/L BUN 8 L (9-20) mg/dL Creatinine 0.75 (0.66-1.25) mg/dL Est GFR (CKD-EPI)AfAm >90 (>60 ml/min/1.73 sqM) Est GFR (CKD-EPI)NonAf >90 (>60 ml/min/1.73 sqM) Glucose 109 H (74-99) mg/dL Calcium 10.4 H (8.4-10.2) mg/dL Magnesium 2.0 (1.6-2.3) mg/dL Total Bilirubin 0.8 (0.2-1.3) mg/dL AST 18 (17-59) U/L ALT 12 (4-49) U/L Alkaline Phosphatase 84 (38-126) U/L Troponin I (0.000-0.034) ng/mL Total Protein 7.5 (6.3-8.2) g/dL Albumin 5.0 (3.5-5.0) g/dL 03/16/24 Range/Units 16:03 WBC (3.8-10.6) k/uL RBC (4.30-5.90) m/uL Hgb (13.0-17.5) gm/dL Hct (39.0-53.0) % MCV (80.0-100.0) fL MCH (25.0-35.0) pg MCHC (31.0-37.0) g/dL RDW (11.5-15.5) % Plt Count (150-450) k/uL MPV Neutrophils % % Lymphocytes % % Monocytes % % Eosinophils % % Basophils % % Neutrophils # (1.3-7.7) k/uL Lymphocytes # (1.0-4.8) k/uL Monocytes # (0-1.0) k/uL Eosinophils # (0-0.7) k/uL Basophils # (0-0.2) k/uL PT (10.0-12.5) sec INR (<1.2) APTT (22.0-30.0) sec Sodium (137-145) mmol/L Potassium (3.5-5.1) mmol/L Chloride (98-107) mmol/L Carbon Dioxide (22-30) mmol/L Anion Gap mmol/L BUN (9-20) mg/dL Creatinine (0.66-1.25) mg/dL Est GFR (CKD-EPI)AfAm (>60 ml/min/1.73 sqM) Est GFR (CKD-EPI)NonAf (>60 ml/min/1.73 sqM) Glucose (74-99) mg/dL Calcium (8.4-10.2) mg/dL Magnesium (1.6-2.3) mg/dL Total Bilirubin (0.2-1.3) mg/dL AST (17-59) U/L ALT (4-49) U/L Alkaline Phosphatase (38-126) U/L Troponin I <0.012 (0.000-0.034) ng/mL Total Protein (6.3-8.2) g/dL Albumin (3.5-5.0) g/dL Disposition <Erika Nick - Last Filed: 03/16/24 16:26> Is patient prescribed a controlled substance at d/c from ED?: No Time of Disposition: 17:00 <Prince Lorenzo - Last Filed: 03/16/24 17:23> Clinical Impression: Chest pain, Atypical chest pain, Anxiety Disposition: HOME SELF-CARE Condition: Fair Instructions (If sedation given, give patient instructions): Chest Pain (ED) Referrals: Luisa Ramos MD [Primary Care Provider] - 1-2 days
[2024-03-16 16:30] LABS: African American GFR (CKD) >90 (>60 ml/min/1.73 sqM); Anion Gap 11 mmol/L; Blood Urea Nitrogen 8 mg/dL (9-20); Carbon Dioxide 29 mmol/L (22-30); Chloride 103 mmol/L (98-107); Glucose 109 mg/dL (74-99); Potassium 4.3 mmol/L (3.5-5.1); Sodium 143 mmol/L (137-145)
[2024-03-16 16:31] LABS: ALT 12 U/L (4-49); AST 18 U/L (17-59); Alkaline Phosphatase 84 U/L (38-126); Calcium 10.4 mg/dL (8.4-10.2); Non-African American GFR(CKD) >90 (>60 ml/min/1.73 sqM); Total Bilirubin 0.8 mg/dL (0.2-1.3); Total Protein 7.5 g/dL (6.3-8.2)
[2024-03-16 16:37] LABS: Partial Thromboplastin Time 23.7 sec (22.0-30.0); Prothrombin Time 10.7 sec (10.0-12.5)
== END 2024-03-16 17:25 | disposition home or self-care (01) ==
LOC: EC 13:40
DX: R07.89 Other chest pain (principal); F41.9 Anxiety disorder, unspecified; Z87.891 Personal history of nicotine dependence
CPT/HCPCS: 36415; 80053; 83735; 84484; 85025; 85610; 85730; 93005; 99285